=== PATIENT | female | born 1955 | race Caucasian/White ===

== ENCOUNTER → 2016-07-07 | Outpatient (CLI) | payer BC ==
--- NOTE | 2016-07-09 08:37 | MM ---
Reason for exam: screening (asymptomatic). Last mammogram was performed 1 year ago. History: Patient is postmenopausal. Family history of breast cancer in sister at age 57. Physical Findings: A clinical breast exam by your physician is recommended on an annual basis and results should be correlated with mammographic findings. MG Screening Mammo w CAD Bilateral CC and MLO view(s) were taken. Prior study comparison: July 03, 2015, bilateral MG screening mammo w CAD. June 26, 2014, bilateral MG screening mammo w CAD. June 24, 2013, bilateral digital screening mammo w/CAD. There are scattered fibroglandular densities. No significant changes when compared with prior studies. ASSESSMENT: Negative, BI-RAD 1 RECOMMENDATION: Routine screening mammogram of both breasts in 1 year.
== END ==
LOC: RADMAMWWP 06:48
PROVIDERS: ATTEND Obstetrics & Gynecology
DX: Z12.31 Encounter for screening mammogram for malignant neoplasm of breast (principal)

== ENCOUNTER → 2016-09-30 | Outpatient (CLI) | payer BC ==
--- NOTE | 2016-09-30 12:11 | EST ---
DATE OF SERVICE: 09/30/2016 AGE: 61Y SEX: F HT: 65 WT: 195 lbs. Protocol Shay: X Other: Stage: Dur. of Exercise: 6:28 *Heart Rate Blood Pressure *Rest: 109 Rest: 152/75 * *Max. Achieved: 148 Maximum BP: 203/63 85% PMHR: 134 100% PMHR: 158 *METS: 7 to 8 INDICATIONS: Abnormal EKG. MEDICATIONS: Simvastatin, Janumet, CoQ10. CLINICAL INFORMATION: Abnormal EKG. The patient is having history of chest pain, diabetes, hypertension, hypercholesterolemia. The patient has Q waves in the lead I and inferior leads suggestive of possible inferior NC, age unknown, appears to be nonpathologic. Resting ECG shows sinus rhythm, rate of 109 beats per minute with Q waves noted in the inferior leads. Does not appear to wide enough to be pathologic. Utilizing a standard Shay protocol, a symptom limited treadmill test was performed. Patient exercised for total of 6 minutes and 28 seconds, attained a peak heart rate of 148 beats per minute, which is approximately 85% predicted maximum heart rate without any chest pain or pressure or ST segment deviations indicative of ischemia in any of the monitoring 12 leads. Patient actually reached into the 90% of predicted maximum heart rate. Patient did not report any symptoms throughout the study. No ST segment deviations indicative of ischemia. May consider doing an echocardiogram to assess any wall motion abnormalities but patient does not have any evidence of underlying ischemia. IMPRESSION: 1. Baseline rhythm is sinus with Q waves noted in the inferior leads; cannot exclude inferior myocardial infarction, age unknown. 2. Negative exercise treadmill test at 90% predicted maximum heart rate. 3. Patient has average level of cardiopulmonary fitness as indicated by VO2 max and METs. Patient attained peak metabolic activity equivalent to 7 to 8 METs.
--- NOTE | 2016-10-01 10:39 | ECHOF ---
Referral Reason:Abnormal EKG R94.31 MEASUREMENTS -------- HEIGHT: 165.1 cm WEIGHT: 88.5 kg BP: 152/75 RVIDd: 2.9 cm (< 3.3) IVSd: 1.0 cm (0.6 - 1.1) LVIDd: 4.5 cm (3.9 - 5.3) LVPWd: 1.0 cm (0.6 - 1.1) IVSs: 1.8 cm LVIDs: 3.1 cm LVPWs: 1.4 cm LA Diam: 3.5 cm (2.7 - 3.8) LAESV Index (A-L): 12.56 ml/m Ao Diam: 3.2 cm (2.0 - 3.7) AV Cusp: 1.9 cm (1.5 - 2.6) MV EXCURSION: 15.488 mm (> 18.000) MV EF SLOPE: 102 mm/s (70 - 150) EPSS: 1.5 cm MV E Juma: 0.72 m/s MV DecT: 271 ms MV A Juma: 0.87 m/s MV E/A Ratio: 0.83 FINDINGS -------- Sinus rhythm. This was a technically adequate study. The left ventricular size is normal. Left ventricular wall thickness is normal. Overall left ventricular systolic function is normal with, an EF between 60 - 65 %. The right ventricle is normal in size and function. Normal LA size by volume 22+/-6 ml/m2. The right atrium is normal in size. There is mild aortic valve sclerosis. Mild mitral annular calcification present. The tricuspid valve appears structurally normal. The pulmonic valve was not well visualized. The aortic root size is normal. Normal inferior vena cava with normal inspiratory collapse consistent with estimated right atrial pressure of 5 mmHg. The pericardium is normal. CONCLUSIONS -------- 1. Sinus rhythm. 2. Mild mitral annular calcification present. 3. The tricuspid valve appears structurally normal. 4. The pulmonic valve was not well visualized. 5. The aortic root size is normal. 6. Normal inferior vena cava with normal inspiratory collapse consistent with estimated right atrial pressure of 5 mmHg. 7. The pericardium is normal. 8. This was a technically adequate study. 9. The left ventricular size is normal. 10. Left ventricular wall thickness is normal. 11. Overall left ventricular systolic function is normal with, an EF between 60 - 65 %. 12. The right ventricle is normal in size and function. 13. Normal LA size by volume 22+/-6 ml/m2. 14. The right atrium is normal in size. 15. There is mild aortic valve sclerosis. OUTREACH AND EDUCATION SOCIAL WORKER: Arely Kohli RDCS
== END | disposition home or self-care (01) ==
LOC: RADNMMAIN 11:09
PROVIDERS: ATTEND Internal Medicine Geriatric Medicine
DX: I05.8 Other rheumatic mitral valve diseases (principal); I70.0 Atherosclerosis of aorta
CPT/HCPCS: 93017; 93306

== ENCOUNTER → 2017-04-22 | Outpatient (CLI) | payer BC ==
--- NOTE | 2017-04-22 11:06 | XR ---
EXAMINATION TYPE: XR chest 2V DATE OF EXAM: 04/22/2017 COMPARISON: 08/14/2010 HISTORY: Shortness of breath TECHNIQUE: Frontal and lateral views of the chest are obtained. FINDINGS: Scattered senescent parenchymal changes noted. Hyperinflation compatible with COPD. No evidence for infiltrate. No evidence for atelectasis. Heart size is stable. Mediastinal structures are stable and grossly unremarkable. No evidence for hilar prominence. Degenerative changes dorsal spine. IMPRESSION: 1. No evidence for acute pulmonary disease.
--- NOTE | 2017-04-22 12:14 | XR ---
EXAMINATION TYPE: XR lumbar spine 2 or 3V DATE OF EXAM: 04/22/2017 CLINICAL HISTORY: pain TECHNIQUE: Three views of the lumbar spine are submitted. COMPARISON: None. FINDINGS: There are 5 lumbar type vertebral bodies identified. The lumbar spine shows satisfactory alignment w ithout evidence of acute fracture or dislocation. Vertebral body heights are within normal limits. Mild degenerative disc space narrowing at L4-5 and L5-S1 and mild facet joint arthropathy. The overl selwyn soft tissue appears unremarkable. IMPRESSION: No acute fracture or dislocation is seen in the lumbar spine. ICD 10 NO FRACTURE, INITIAL EVALUATION
== END | disposition home or self-care (01) ==
LOC: RADXRMAIN 10:36
PROVIDERS: ATTEND Internal Medicine Geriatric Medicine
DX: R07.89 Other chest pain (principal); M54.5 Low back pain
CPT/HCPCS: 71020; 72100

== ENCOUNTER → 2017-07-31 | Outpatient (CLI) | payer BC ==
--- NOTE | 2017-08-03 10:58 | MM ---
Reason for exam: screening (asymptomatic). Last mammogram was performed 1 year and 1 month ago. History: Patient is postmenopausal. Family history of breast cancer in sister at age 57. Physical Findings: A clinical breast exam by your physician is recommended on an annual basis and results should be correlated with mammographic findings. MG 3D Screening Mammo W/Cad Bilateral CC and MLO view(s) were taken. Prior study comparison: July 07, 2016, bilateral MG screening mammo w CAD. July 03, 2015, bilateral MG screening mammo w CAD. There are scattered fibroglandular densities. Asymmetric breast tissue in the left anterior position. There is no discrete abnormality. ASSESSMENT: Negative, BI-RAD 1 RECOMMENDATION: Routine screening mammogram of both breasts in 1 year.
== END | disposition home or self-care (01) ==
LOC: RADMAMWWP 07:01
PROVIDERS: ATTEND Obstetrics & Gynecology
DX: Z12.31 Encounter for screening mammogram for malignant neoplasm of breast (principal)
CPT/HCPCS: 77063; 77067

== ENCOUNTER → 2017-10-12 | Outpatient (CLI) | payer BC ==
--- NOTE | 2017-10-12 13:51 | BD ---
EXAMINATION TYPE: MG DEXA axial skeleton. DATE OF EXAM: 10/12/2017 COMPARISON: 02/25/2011 CLINICAL HISTORY: Postmenopausal female. Osteoporosis screening. Height: 63.5 IN Weight: 199 LBS FRAX RISK QUESTIONS: Alcohol (3 or more units per day): NO Family History (Parent hip fracture): NO Glucocorticoids (More than 3mos): NO (Ex: prednisone, prednisolone, methylprednisolone, dexamethasone, and hydrocortisone). History of Fracture in Adulthood: YES LT FOOT AGE 52 Secondary Osteoporosis: 1. Type 1 Diabetes: NO 2. Hyperthyroidism: NO 3. Menopause before 45: AGE 53 4. Malnutrition: NO 5. Chronic liver disease: NO Rheumatoid Arthritis: NO Current Tobacco Use: NO RISK FACTORS HISTORY OF: Active: YES Diet low in dairy products/other sources of calcium: YES Postmenopausal woman: AGE 53 MEDICATIONS: Additional Medications: CALCIUM, VIT D, HCTZ, SIMVASTATIN, KLOR-CON, JANUMET, COQ10, EXAM MEASUREMENTS: Bone mineral densitometry was performed using the [employer]. Bone mineral density as measured about the Lumbar spine is: ----- L1-L4(G/cm2): 1.400 T Score Values are as follows: ----- L2: 1.4 ----- L3: 1.7 ----- L4: 2.2 ----- L1-L4: 1.8 Bone mineral density has: Increased 1.2% since study of: 02/25/2011 Bone mineral density about the R hip (g/cm2): 0.852 Bone mineral density about the L hip (g/cm2): 0.918 T Score values are as follows: -----R Neck: -1.3 -----L Neck: -0.9 -----R Total: -0.2 -----L Total: -0.3 Bone mineral density has: Increased 1.2% since study of: 02/25/2011 IMPRESSION: Osteopenia (T Score between -2.5 and -1) with regards to the right hip. There is slightly increased risk of fracture and the patient may be considered for treatment. Re-Screen 2-5 years. NOTE: T-SCORE=SD OF THE YOUNG ADULT MEAN.
--- NOTE | 2017-10-12 14:01 | XR ---
EXAMINATION TYPE: XR ribs RT DATE OF EXAM: 10/12/2017 COMPARISON: Prior chest x-ray April 22, 2017 HISTORY: Right rib pain for 6 years. TECHNIQUE: A frontal and oblique images of the right-sided ribs are acquired. FINDINGS: No suspicious acute or subacute displaced right-sided rib fractures identified. No suspicio us expansile lesion is seen. Visualized right lung is clear. Cholecystectomy clips are incidentally r edemonstrated. IMPRESSION: No acute displaced right-sided rib fracture is seen.
== END | disposition home or self-care (01) ==
LOC: RADBDWWP 13:01
PROVIDERS: ATTEND Internal Medicine Geriatric Medicine
DX: M85.851 Other specified disorders of bone density and structure, right thigh (principal); R07.89 Other chest pain
CPT/HCPCS: 77080

== ENCOUNTER → 2018-04-08 | Outpatient (CLI) | payer BC ==
--- NOTE | 2018-04-08 12:54 | US ---
EXAMINATION TYPE: US abdomen complete DATE OF EXAM: 04/08/2018 COMPARISON: CT & US CLINICAL HISTORY: R10.84 Generalized abdominal pain. Pt states upper ABD pain x many years/ GB remove d EXAM MEASUREMENTS: Liver Length: 17.7 cm CBD: 0.7 cm Spleen: 10.9 cm Right Kidney: 12.0 x 5.2 x 5.3 cm Left Kidney: 11.6 x 5.4 x 4.5 cm Pancreas: wnl, 2mm panc duct visualized Liver: Heterogeneous, upper limits of normal for size, 2 hypoechoic areas seen, one in left lobe= 3. 7 x 1.8 x 6.2 cm and in right lobe near stephen= 2.8 x 1.8 x 3.0 cm/ cyst right superior lobe= 2.1 x 2. 1 x 1.6 cm Gallbladder: Surgically absent Evidence for sonographic Rangel's sign: No CBD: wnl for post amanda Spleen: wnl Right Kidney: Hyperechoic area mid= 0.6 cm Left Kidney: wnl Upper IVC: wnl Abd Aorta: wnl The intrahepatic portion of the IVC and proximal abdominal aorta are within normal limits. There is no evidence of cholelithiasis. Common bile duct is unremarkable. The visualized portions of the locke creas are homogenous. The spleen is unremarkable. Kidneys are symmetric and free of hydronephrosis. No renal lesions are seen. IMPRESSION: 1. Findings are suggestive of hepatic steatosis with areas of probable focal fatty sparing, however f ull characterization with three-phase enhanced CT abdomen would be suggested to confirm these areas r epresent fatty sparing rather than hepatic masses. 2. Hyperechoic 6 mm right renal focus could represent a small nonshadowing calculus or prominent richelle l sinus fat. No evidence of hydronephrosis.
== END | disposition home or self-care (01) ==
LOC: RADUSWWP 11:52
PROVIDERS: ATTEND Internal Medicine Geriatric Medicine
DX: R93.41 Abnormal radiologic findings on diagnostic imaging of renal pelvis, ureter, or bladder (principal); R10.84 Generalized abdominal pain
CPT/HCPCS: 76700

== ENCOUNTER → 2018-06-22 | Outpatient (CLI) | payer BC ==
--- NOTE | 2018-06-22 14:10 | CT ---
EXAMINATION TYPE: CT abdomen w con DATE OF EXAM: 06/22/2018 COMPARISON: Ultrasound 04/08/2018 INDICATION: Abnormal US. RUQ pain DLP: 910.1 mGycm, Automated exposure control for dose reduction was used. CONTRAST: 100 mL of Isovue 300. Study performed with Oral Contrast TECHNIQUE: Axial images were obtained from above the diaphragm to the iliac crests in the axial plane at 5 mm thick sections. Reconstructed images are reviewed on the computer in the coronal plane. 2 phase imaging is performed post contrast and liver. FINDINGS: Limited CT sections are obtained the lung bases. The lung bases are clear. CT ABDOMEN: Liver: 0.5 cm this may be in the superior right lobe liver. There is a 1.9 cm cyst at the inferior ri ght tip liver measuring 7 Hounsfield units. Suspicious masses are not identified. Spleen: Normal Pancreas: Normal Adrenal glands: The adrenal glands are normal. Gallbladder: Surgically absent Kidneys: No masses are evident. No hydronephrosis is present. No cysts are present. Delayed images were obtained through the kidneys, which remain unremarkable. Aorta: Normal Inferior vena cava: Normal. CT PELVIS: Loops of bowel distended with oral contrast normal. Oral contrast extends to distal small bowel loops . The colon contains some fecal debris. IMPRESSIONS: 1. Hepatic cysts.
== END | disposition home or self-care (01) ==
LOC: RADCTMAIN 08:00
PROVIDERS: ATTEND Internal Medicine Geriatric Medicine
DX: K76.89 Other specified diseases of liver (principal)
CPT/HCPCS: 82565; 84520; 74160; 36415; Q9967

== ENCOUNTER → 2018-10-12 | Outpatient (CLI) | payer BC ==
--- NOTE | 2018-10-13 12:08 | MM ---
Reason for exam: screening (asymptomatic). Last mammogram was performed 1 year and 2 months ago. History: Patient is postmenopausal. Family history of breast cancer in sister at age 57. Physical Findings: A clinical breast exam by your physician is recommended on an annual basis and results should be correlated with mammographic findings. MG 3D Screening Mammo W/Cad Bilateral CC and MLO view(s) were taken. Prior study comparison: July 31, 2017, bilateral MG 3d screening mammo w/cad. July 07, 2016, bilateral MG screening mammo w CAD. There are scattered fibroglandular densities. There is no discrete abnormality. ASSESSMENT: Negative, BI-RAD 1 RECOMMENDATION: Routine screening mammogram of both breasts in 1 year.
== END ==
LOC: RADMAMWWP 07:50
PROVIDERS: ATTEND Obstetrics & Gynecology
DX: Z12.31 Encounter for screening mammogram for malignant neoplasm of breast (principal)
CPT/HCPCS: 77063; 77067

== ENCOUNTER → 2019-07-01 | Outpatient (CLI) | payer BC ==
--- NOTE | 2019-07-01 13:05 | ECHOS ---
STRESS ECHOCARDIOGRAM INDICATIONS: Chest pain. MEDICATIONS: Lisinopril, Janumet, Klor-Con, simvastatin. BASELINE HEART RATE: 82 BASELINE BLOOD PRESSURE: 136/49 MAXIMUM HEART RATE: 150 MAXIMUM BLOOD PRESSURE: 163/61 85% MPHR: 133 100% MPHR: 156 METS: 7.1 MAXIMUM STAGE REACHED: 2 TOTAL EXERCISE TIME: 6:00 CLINICAL INFORMATION: Patient was exercised for a total period of 6 minutes, a peak heart rate of 150 was achieved. Maximum blood pressure of 163/61 mmHg was noted. Resting EKG shows a normal sinus rhythm with normal CO interval and QRS duration and normal ST-T waves. During exercise, J-point depression with upsloping ST segments are noted. Patient did not complain of any chest pain during the test. The baseline echocardiographic images reveals a normal left ventricular chamber size with normal left ventricular systolic function in the immediate postexercise period. Normal increase in the wall thickness and contractility is noted. FINAL IMPRESSION: This stress echocardiographic study is negative for stress-induced ischemia. EKG portion of the stress test is not suggestive of ischemia. Patient's exercise tolerance is normal. MMODL / IJN: [id number] /
== END | disposition home or self-care (01) ==
LOC: RADNMMAIN 09:34
PROVIDERS: ATTEND Internal Medicine Geriatric Medicine
DX: R07.9 Chest pain, unspecified (principal)
CPT/HCPCS: 93351

== ENCOUNTER → 2020-02-24 | Outpatient (CLI) | payer MEDICARE ==
--- NOTE | 2020-02-24 12:24 | XR ---
EXAMINATION TYPE: XR shoulder complete RT DATE OF EXAM: 02/24/2020 CLINICAL HISTORY: pain TECHNIQUE: Three views of the right shoulder are obtained. COMPARISON: None FINDINGS: There is no acute fracture/dislocation evident. The acromioclavicular and glenohumeral linnette int spaces appear mildly narrowed. The visualized ribs are intact and unremarkable. IMPRESSION: 1. There is no acute fracture or dislocation. ICD 10 NO FRACTURE, INITIAL EVALUATION
== END | disposition home or self-care (01) ==
LOC: RADXRMAIN 11:52
PROVIDERS: ATTEND Nurse Practitioner Gerontology
DX: M25.511 Pain in right shoulder (principal)

== ENCOUNTER 2020-10-12 20:01 | Emergency (ER) | payer MEDICARE ==
[2020-10-12 20:07] VITALS: RESP 18; TEMP 98.1
--- NOTE | 2020-10-12 20:32 | ED ---
General Adult HPI - General Chief complaint: Recheck/Abnormal Lab/Rx Stated complaint: BP IS HIGH. Time Seen by Provider: 10/12/20 20:10 Source: patient, RN notes reviewed Mode of arrival: ambulatory - History of Present Illness Initial comments: 65-year-old white female patient in no acute distress presents to the emergency room with her complaining of elevated blood pressure on her blood pressure monitor at home. Patient states was at the dentist yesterday and they told her her blood pressure was elevated at 188 systolic. patient states has been checking it frequently at home with similar readings. Patient is anxious about her elevated blood pressure. Concerned because she is going on vacation tomorrow and wants to make sure everything is okay. She states they are driving to [place] for 17 days. Patient states takes lisinopril 30 mg once a day and has been on it for over a year with no complications. Patient denies any other symptoms but does state that she did have about 20-30 second episode of chest pressure midsternal today that resolved on its own. Patient states that she also has an occasional throbbing headache in the back of her head at night but resolves with sleep. Patient denies cough, fevers, nausea or vomiting. Patient denies chest pain at this time. -: days(s) Location: chest Radiation: non-radiation Severity scale (1-10): 0 Quality: other (pressure) Improves with: rest Worsens with: none Associated Symptoms: headaches (throbbing at night) Treatments Prior to Arrival: none (2) - Related Data Home Medications Medication Instructions Recorded Confirmed Amitriptyline HCl 25 mg PO HS 08/03/14 08/03/14 Hydrochlorothiazide 25 mg PO DAILY 08/03/14 08/03/14 Potassium Chloride ER [K-Dur 20] 20 meq PO DAILY 08/03/14 08/03/14 Simvastatin [Zocor] 20 mg PO HS 08/03/14 08/03/14 Allergies Allergy/AdvReac Type Severity Reaction Status Date / Time No Known Allergies Allergy Verified 10/12/20 20:07 Review of Systems ROS Statement: Those systems with pertinent positive or pertinent negative responses have been documented in the HPI. ROS Other: All systems not noted in ROS Statement are negative. 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 lysis of adhesions. removal ovarian cyst Past Anesthesia/Blood Transfusion Reactions: Motion Sickness, Postoperative Nausea & Vomiting (PONV) Smoking Status: Never smoker Past Alcohol Use History: Occasional Past Drug Use History: None Reported - Past Family History Mother Family Medical History: Cancer Additional Family Medical History / Comment(s): bladder General Exam General appearance: alert, in no apparent distress Head exam: Present: atraumatic, normocephalic, normal inspection Eye exam: Present: normal appearance, PERRL, EOMI. Absent: scleral icterus, conjunctival injection, nystagmus, periorbital swelling Pupils: Present: normal accommodation ENT exam: Present: normal exam, normal oropharynx, mucous membranes moist Neck exam: Present: normal inspection, full ROM. Absent: tenderness, meningismus, lymphadenopathy, thyromegaly Respiratory exam: Present: normal lung sounds bilaterally. Absent: respiratory distress, wheezes, rales, rhonchi, stridor, chest wall tenderness, accessory muscle use, decreased breath sounds, prolonged expiratory Cardiovascular Exam: Present: normal rhythm, tachycardia, normal heart sounds. Absent: clicks, JVD GI/Abdominal exam: Present: soft, normal bowel sounds. Absent: distended, tenderness, guarding, rebound, rigid Extremities exam: Present: normal inspection, full ROM, normal capillary refill. Absent: tenderness, pedal edema, joint swelling, calf tenderness Back exam: Present: normal inspection, full ROM. Absent: tenderness, CVA tenderness (R), CVA tenderness (L) Neurological exam: Present: alert, oriented X3, CN II-XII intact Psychiatric exam: Present: anxious Skin exam: Present: warm, dry, intact, normal color. Absent: rash, cyanosis, diaphoretic, petechiae, pallor, mottled Course Vital Signs 10/12/20 10/12/20 20:04 21:07 Temperature 98.1 F Pulse Rate 115 H 78 Respiratory 18 18 Rate Blood Pressure 188/80 144/72 O2 Sat by Pulse 98 Oximetry EKG Findings - EKG Results: EKG: WNL, sinus rhythm (Normal sinus rhythm with ventricular rate of 82, MA interval 0.17, QRS of 0.11, QTC of 0.420) Medical Decision Making - Medical Decision Making Patient relaxed on cart with a blood pressure of 144/72, EKG normal sinus rhythm, troponin of 0.012, oxygen 98% on room air, patient with no chest pain in ER. Hemoglobin is 14.2 hematocrit is 43.2. This is likely anxiety related and patient directed to follow up with primary care doctor. Patient agreeable to this plan. Case discussed with Dr. Cui who was also agreeable with this plan. - Lab Data Result diagrams: 10/12/20 20:36 10/12/20 20:36 Lab Results 10/12/20 10/12/20 10/12/20 Range/Units 20:36 20:36 20:36 WBC 7.0 (3.8-10.6) k/uL RBC 5.07 (3.80-5.40) m/uL Hgb 14.2 (11.4-16.0) gm/dL Hct 43.2 (34.0-46.0) % MCV 85.1 (80.0-100.0) fL MCH 27.9 (25.0-35.0) pg MCHC 32.8 (31.0-37.0) g/dL RDW 14.0 (11.5-15.5) % Plt Count 266 (150-450) k/uL MPV 7.5 Neutrophils % 60 % Lymphocytes % 33 % Monocytes % 4 % Eosinophils % 2 % Basophils % 0 % Neutrophils # 4.2 (1.3-7.7) k/uL Lymphocytes # 2.3 (1.0-4.8) k/uL Monocytes # 0.3 (0-1.0) k/uL Eosinophils # 0.1 (0-0.7) k/uL Basophils # 0.0 (0-0.2) k/uL Sodium 139 (137-145) mmol/L Chloride 104 (98-107) mmol/L Carbon Dioxide 24 (22-30) mmol/L Anion Gap 11 mmol/L BUN 12 (7-17) mg/dL Creatinine 0.62 (0.52-1.04) mg/dL Est GFR (CKD-EPI)AfAm >90 (>60 ml/min/1.73 sqM) Est GFR (CKD-EPI)NonAf >90 (>60 ml/min/1.73 sqM) Glucose 164 H (74-99) mg/dL Calcium 10.3 H (8.4-10.2) mg/dL Magnesium 2.1 (1.6-2.3) mg/dL Total Bilirubin 0.6 (0.2-1.3) mg/dL AST 23 (14-36) U/L ALT 15 (4-34) U/L Alkaline Phosphatase 65 (38-126) U/L Troponin I <0.012 (0.000-0.034) ng/mL Total Protein 7.7 (6.3-8.2) g/dL Albumin 4.7 (3.5-5.0) g/dL Disposition Clinical Impression: Anxiety, Hypertension Disposition: HOME SELF-CARE Condition: Good Additional Instructions: Follow-up with the primary care doctor is scheduled, continue your home medications. Is patient prescribed a controlled substance at d/c from ED?: No Referrals: Hans Redmond MD [Primary Care Provider] - 1-2 days Time of Disposition: 21:32
[2020-10-12 20:48] LABS: Basophils % (A) 0 %; Eosinophils # (A) 0.1 k/uL (0-0.7); Eosinophils % (A) 2 %; HCT 43.2 % (34.0-46.0); HGB 14.2 gm/dL (11.4-16.0); Lymphocytes # (A) 2.3 k/uL (1.0-4.8); Lymphocytes % (A) 33 %; MCH 27.9 pg (25.0-35.0); MCHC 32.8 g/dL (31.0-37.0); MCV 85.1 fL (80.0-100.0); Mean Platelet Volume 7.5; Monocytes # (A) 0.3 k/uL (0-1.0); Monocytes % (A) 4 %; Neutrophils # (A) 4.2 k/uL (1.3-7.7); Neutrophils % (A) 60 %; Platelet Count 266 k/uL (150-450); RBC 5.07 m/uL (3.80-5.40)
[2020-10-12 20:57] LABS: ALT 15 U/L (4-34); AST 23 U/L (14-36); African American GFR (CKD) >90 (>60 ml/min/1.73 sqM); Albumin 4.7 g/dL (3.5-5.0); Alkaline Phosphatase 65 U/L (38-126); Anion Gap 11 mmol/L; Blood Urea Nitrogen 12 mg/dL (7-17); Calcium 10.3 mg/dL (8.4-10.2); Carbon Dioxide 24 mmol/L (22-30); Chloride 104 mmol/L (98-107); Glucose 164 mg/dL (74-99); Magnesium 2.1 mg/dL (1.6-2.3); Non-African American GFR(CKD) >90 (>60 ml/min/1.73 sqM); Sodium 139 mmol/L (137-145); Total Bilirubin 0.6 mg/dL (0.2-1.3); Total Protein 7.7 g/dL (6.3-8.2)
[2020-10-12 21:24] VITALS: BP 144/72; PULSE 78
[2020-10-12 21:35] LABS: Potassium 3.8 mmol/L (3.5-5.1)
== END 2020-10-12 21:38 | disposition home or self-care (01) ==
LOC: EC 20:01
DX: I10 Essential (primary) hypertension (principal); F41.9 Anxiety disorder, unspecified; E78.5 Hyperlipidemia, unspecified
CPT/HCPCS: 36415; 80053; 83735; 84484; 85025; 93005; 99283

== ENCOUNTER 2021-03-08 06:59 | Day surgery (SDC) | payer MEDICARE ==
[2021-03-06 16:35] VITALS: BMI 30.7
[~2021-03-08 06:59] MED LIST: LACTATED RINGERS 1,000 ML IV SCH
[2021-03-08 07:23] VITALS: RESP 16; TEMP 98.5
[2021-03-08 07:30] LABS: Glucose,Whole Blood 117 mg/dL (75-99)
[2021-03-08] MEDS ORDERED: PROPOFOL 10 MG/ML 20 ML VIAL IV ONE (07:51)
[2021-03-08] MEDS ORDERED: LIDOCAINE 1% INJ 10MG/ML (20 ML MDV) ONE (07:51)
--- NOTE | 2021-03-08 08:23 | P.PCN ---
Date of Procedure: 03/08/21 Procedure(s) Performed: BRIEF HISTORY: Patient is a 65-year-old pleasant female scheduled for an elective colonoscopy as a part of evaluation of prior history of colon polyps. Her last colonoscopy was 5 years ago. PROCEDURE PERFORMED: Colonoscopy. PREOPERATIVE DIAGNOSIS: History of colon polyps. IV sedation per Anesthesia. PROCEDURE: After informed consent was obtained, the patient, was brought into the endoscopy unit. IV sedation was administered by Anesthesia under continuous monitoring. Digital rectal examination was normal. Initially the Olympus CF-160 flexible video colonoscope was then inserted in the rectum, gradually advanced into the cecum without any difficulty. Careful examination was performed as the scope was gradually being withdrawn. Ileocecal valve and the appendiceal orifice were visualized and appeared normal. Prep was excellent. Mucosa of the cecum, ascending colon, transverse colon, descending colon, sigmoid colon, and rectum appeared normal. Scattered sigmoid diverticulosis. Retroflexion was performed in the rectum and no lesions were seen. The patient tolerated the procedure well. IMPRESSION: Normal-appearing colon from rectum to cecum with no evidence of colorectal neoplasia. RECOMMENDATIONS: Findings of this examination were discussed with the patient as well as a family. She was advised to have a repeat screening colonoscopy in 10 years.
[2021-03-08 08:46] VITALS: BP 101/54; PULSE 74
== END 2021-03-08 09:14 | disposition home or self-care (01) ==
LOC: ORWHC2ENDO 06:59
PROVIDERS: ATTEND Internal Medicine Gastroenterology
DX: Z12.11 Encounter for screening for malignant neoplasm of colon (principal); K57.30 Diverticulosis of large intestine without perforation or abscess without bleeding; Z86.010 Personal history of colon polyps; I10 Essential (primary) hypertension; E78.5 Hyperlipidemia, unspecified; Z79.84 Long term (current) use of oral hypoglycemic drugs; Z79.899 Other long term (current) drug therapy; Z90.49 Acquired absence of other specified parts of digestive tract
CPT/HCPCS: J2001; J2704; G0105

== ENCOUNTER → 2021-03-12 | Outpatient (CLI) | payer MEDICARE ==
--- NOTE | 2021-03-13 09:42 | MM ---
Reason for exam: screening (asymptomatic). Last mammogram was performed 1 year and 2 months ago. History: Patient is postmenopausal. Family history of breast cancer in sister at age 57. Took hormonal contraceptives for 5 years. Physical Findings: A clinical breast exam by your physician is recommended on an annual basis and results should be correlated with mammographic findings. MG 3D Screening Mammo W/Cad Bilateral CC and MLO view(s) were taken. Prior study comparison: January 09, 2020, bilateral MG 3d screening mammo w/cad. October 12, 2018, bilateral MG 3d screening mammo w/cad. The breast tissue is heterogeneously dense. This may lower the sensitivity of mammography. There is no discrete abnormality. No significant changes when compared with prior studies. ASSESSMENT: Negative, BI-RAD 1 RECOMMENDATION: Routine screening mammogram of both breasts in 1 year.
== END | disposition home or self-care (01) ==
LOC: RADMAMWWP 07:13
PROVIDERS: ATTEND Internal Medicine Geriatric Medicine
DX: Z12.31 Encounter for screening mammogram for malignant neoplasm of breast (principal); Z78.0 Asymptomatic menopausal state; Z80.3 Family history of malignant neoplasm of breast
CPT/HCPCS: 77063; 77067

== ENCOUNTER 2021-05-29 18:46 | Emergency (ER) | payer MEDICARE ==
[2021-05-29] MEDS ORDERED: SODIUM CHLORIDE 0.9% 1,000 ML IV STA (19:27)
[2021-05-29] MEDS ORDERED: IBUPROFEN 600 MG TAB PO STA (19:27)
[2021-05-29] MEDS ORDERED: ACETAMINOPHEN TAB 325 MG TAB PO STA (19:27)
[2021-05-29 19:59] VITALS: RESP 18
[2021-05-29 20:17] LABS: Albumin 4.1 g/dL (3.5-5.0); Calcium 9.7 mg/dL (8.4-10.2); HCT 42.4 % (34.0-46.0); HGB 14.2 gm/dL (11.4-16.0); MCHC 33.4 g/dL (31.0-37.0); MCV 89.9 fL (80.0-100.0); Mean Platelet Volume 9.7; Platelet Count 184 k/uL (150-450); Potassium 4.5 mmol/L (3.5-5.1); RBC 4.72 m/uL (3.80-5.40); RDW 14.2 % (11.5-15.5); Total Bilirubin 1.7 mg/dL (0.2-1.3); Total Protein 6.8 g/dL (6.3-8.2); WBC 4.3 k/uL (3.8-10.6)
[2021-05-29 20:32] LABS: Band Neutrophils % 3 %; Eosinophils # (M) 0.04 k/uL (0-0.7); Lymphocytes # (M) 0.22 k/uL (1.0-4.8); Monocytes # (M) 0.09 k/uL (0-1.0); Neutrophils % (M) 89 %; Nucleated Red Blood Cells 0 /100 WBC (0-0); Polychromasia Present; Total Cells Counted 100
--- NOTE | 2021-05-29 20:41 | XR ---
EXAMINATION TYPE: XR chest 2V DATE OF EXAM: 05/29/2021 COMPARISON: NONE HISTORY: Fever TECHNIQUE: Frontal and lateral views of the chest are obtained. FINDINGS: There is no focal air space opacity, pleural effusion, or pneumothorax seen. The cardiac silhouette size is within normal limits. The osseous structures are intact. IMPRESSION: No acute cardiopulmonary process.
[2021-05-29 21:15] VITALS: BP 99/56; PULSE 99; TEMP 101.5
[2021-05-29 21:33] LABS: Appearance,Urine Turbid (Clear); Bacteria,Urine Many /hpf; Bilirubin,Urine Negative (Negative); Blood,Urine Negative (Negative); Budding Yeast,Urine Moderate /hpf; Color,Urine Yellow; Glucose,Urine (UA) Negative (Negative); Hyaline Casts,Urine 42 /lpf (0-2); Ketones,Urine Trace (Negative); Leukocyte Esterase,Urine Large (Negative); Mucus,Urine Occasional /hpf; Nitrite,Urine Negative (Negative); Protein,Urine 1+ (Negative); RBC,Urine 6 /hpf (0-5); Specific Gravity,Urine 1.019 (1.001-1.035); Squamous Epithelial Cell,Urine 34 /hpf (0-4); Urobilinogen,Urine <2.0 mg/dL (<2.0); WBC,Urine 18 /hpf (0-5)
[2021-05-29] MEDS ORDERED: cefTRIAXone IN SWFI 1,000 MG/10 ML SYRINGE IVP STA (22:01)
[2021-05-29] MEDS ORDERED: ONDANSETRON 4 MG ODT STARTER PACK 2 TAB BTL PO STA (22:07)
--- NOTE | 2021-05-29 22:10 | ED ---
General Adult HPI - General Chief complaint: Fever Stated complaint: Sepsis Time Seen by Provider: 05/29/21 19:22 Source: patient, RN notes reviewed Mode of arrival: wheelchair Limitations: no limitations - History of Present Illness Initial comments: Patient is a 65-year-old female that presents to the emergency department complaining of nausea vomiting 2 days. She notes that she woke up this morning with a fever nausea vomiting she decided come to the emergency room. Patient denied any other upper respiratory tract type symptoms. Patient's did look like she was not feeling well lying in bed. She denied any alleviating or aggravating factors. Denied chest pain shortness of breath headache diarrhea constipation fatigue chills. - Related Data Home Medications Medication Instructions Recorded Confirmed Potassium Chloride ER [K-Dur 20] 20 meq PO HS 08/03/14 05/29/21 Dorzolamide-Timol 2.23%/0.68% 1 drop BOTH EYES BID 03/06/21 05/29/21 [Cosopt] Ergocalciferol [Vitamin D2 (1250 50,000 unit PO DIRECTED 03/06/21 05/29/21 Mcg = 10423 Iu)] Latanoprost Ophth [Xalatan 0.005%] 1 drops BOTH EYES HS 03/06/21 05/29/21 Rosuvastatin [Crestor] 10 mg PO HS 03/06/21 05/29/21 lisinopriL [Zestril] 20 mg PO BID 03/06/21 05/29/21 sitaGLIPtin PHOS/metFORMIN HCL 1 tab PO BID 03/06/21 05/29/21 [Janumet 50-500 mg Tablet] Calcium Carbonate [Calcium] 1,200 mg PO Q48H 05/29/21 05/29/21 Ubidecarenone [Coenzyme Q10] 200 mg PO DAILY 05/29/21 05/29/21 amLODIPine [Norvasc] 5 mg PO DAILY 05/29/21 05/29/21 Previous Rx's Medication Instructions Recorded Cephalexin [Keflex] 500 mg PO Q6HR #40 cap 05/29/21 Allergies Allergy/AdvReac Type Severity Reaction Status Date / Time No Known Allergies Allergy Verified 05/29/21 21:19 Review of Systems ROS Statement: Those systems with pertinent positive or pertinent negative responses have been documented in the HPI. ROS Other: All systems not noted in ROS Statement are negative. 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 lysis of adhesions. removal ovarian cyst Past Anesthesia/Blood Transfusion Reactions: Motion Sickness, Postoperative Nausea & Vomiting (PONV) Past Psychological History: No Psychological Hx Reported Smoking Status: Never smoker Past Alcohol Use History: None Reported Past Drug Use History: None Reported - Past Family History Mother Family Medical History: Cancer Additional Family Medical History / Comment(s): bladder General Exam Limitations: no limitations General appearance: alert, in no apparent distress Head exam: Present: atraumatic, normocephalic, normal inspection Eye exam: Present: normal appearance, PERRL, EOMI. Absent: scleral icterus, conjunctival injection, periorbital swelling Neck exam: Present: normal inspection Respiratory exam: Present: normal lung sounds bilaterally. Absent: respiratory distress, wheezes, rales, rhonchi, stridor Cardiovascular Exam: Present: regular rate, normal rhythm, normal heart sounds. Absent: systolic murmur, diastolic murmur, rubs, gallop, clicks GI/Abdominal exam: Present: soft, normal bowel sounds. Absent: distended, tenderness, guarding, rebound, rigid Extremities exam: Present: normal inspection, full ROM, normal capillary refill. Absent: tenderness, pedal edema, joint swelling, calf tenderness Neurological exam: Present: alert, oriented X3 Psychiatric exam: Present: normal affect, normal mood Skin exam: Present: warm, dry, intact, normal color. Absent: rash Course Vital Signs 05/29/21 05/29/21 05/29/21 18:48 19:58 21:14 Temperature 103.0 F H 101.5 F H Pulse Rate 131 H 127 H 99 Respiratory 20 18 18 Rate Blood Pressure 124/67 123/57 99/56 O2 Sat by Pulse 98 93 L 94 L Oximetry Medical Decision Making - Medical Decision Making 65-year-old female with a fever and nausea vomiting for the past several days. Labs, chest x-ray, 600 mg of Motrin, 650 mg Tylenol, 4 mg of Zofran ordered. Labs: CBC and CMP unremarkable, urinalysis shows 18 white blood cells many ok teria. 1 g Rocephin ordered, antibiotics sent to pharmacy. Chest x-ray shows no acute cardiopulmonary process. Patient most likely has a urinary tract infection. Case discussed with Dr. Hassan, patient can discharge home. - Lab Data Result diagrams: 05/29/21 19:46 05/29/21 19:46 Lab Results 05/29/21 05/29/21 05/29/21 Range/Units 18:55 19:46 19:46 WBC 4.3 (3.8-10.6) k/uL RBC 4.72 (3.80-5.40) m/uL Hgb 14.2 (11.4-16.0) gm/dL Hct 42.4 (34.0-46.0) % MCV 89.9 (80.0-100.0) fL MCH 30.0 (25.0-35.0) pg MCHC 33.4 (31.0-37.0) g/dL RDW 14.2 (11.5-15.5) % Plt Count 184 (150-450) k/uL MPV 9.7 Neutrophils % (Manual) 89 % Band Neuts % (Manual) 3 % Lymphocytes % (Manual) 5 % Monocytes % (Manual) 2 % Eosinophils % (Manual) 1 % Neutrophils # (Manual) 3.90 (1.3-7.7) k/uL Lymphocytes # (Manual) 0.22 L (1.0-4.8) k/uL Monocytes # (Manual) 0.09 (0-1.0) k/uL Eosinophils # (Manual) 0.04 (0-0.7) k/uL Nucleated RBCs 0 (0-0) /100 WBC Polychromasia Present Sodium 133 L (137-145) mmol/L Potassium 4.5 (3.5-5.1) mmol/L Chloride 103 (98-107) mmol/L Carbon Dioxide 13 L (22-30) mmol/L Anion Gap 17 mmol/L BUN 45 H (7-17) mg/dL Creatinine 2.00 H (0.52-1.04) mg/dL Est GFR (CKD-EPI)AfAm 29 (>60 ml/min/1.73 sqM) Est GFR (CKD-EPI)NonAf 26 (>60 ml/min/1.73 sqM) Glucose 179 H (74-99) mg/dL Calcium 9.7 (8.4-10.2) mg/dL Total Bilirubin 1.7 H (0.2-1.3) mg/dL AST 44 H (14-36) U/L ALT 30 (4-34) U/L Alkaline Phosphatase 72 (38-126) U/L Total Protein 6.8 (6.3-8.2) g/dL Albumin 4.1 (3.5-5.0) g/dL Urine Color Urine Appearance (Clear) Urine pH (5.0-8.0) Ur Specific [place] (1.001-1.035) Urine Protein (Negative) Urine Glucose (UA) (Negative) Urine Ketones (Negative) Urine Blood (Negative) Urine Nitrite (Negative) Urine Bilirubin (Negative) Urine Urobilinogen (<2.0) mg/dL Ur Leukocyte Esterase (Negative) Urine RBC (0-5) /hpf Urine WBC (0-5) /hpf Ur Squamous Epith Cells (0-4) /hpf Urine Bacteria (None) /hpf Hyaline Casts (0-2) /lpf Urine Mucus (None) /hpf Urine Yeast (Budding) (None) /hpf Coronavirus (PCR) Not Detected (Not Detectd) Influenza Type A RNA (Not Detectd) Influenza Type B (PCR) (Not Detectd) 05/29/21 05/29/21 Range/Units 19:46 19:46 WBC (3.8-10.6) k/uL RBC (3.80-5.40) m/uL Hgb (11.4-16.0) gm/dL Hct (34.0-46.0) % MCV (80.0-100.0) fL MCH (25.0-35.0) pg MCHC (31.0-37.0) g/dL RDW (11.5-15.5) % Plt Count (150-450) k/uL MPV Neutrophils % (Manual) % Band Neuts % (Manual) % Lymphocytes % (Manual) % Monocytes % (Manual) % Eosinophils % (Manual) % Neutrophils # (Manual) (1.3-7.7) k/uL Lymphocytes # (Manual) (1.0-4.8) k/uL Monocytes # (Manual) (0-1.0) k/uL Eosinophils # (Manual) (0-0.7) k/uL Nucleated RBCs (0-0) /100 WBC Polychromasia Sodium (137-145) mmol/L Potassium (3.5-5.1) mmol/L Chloride (98-107) mmol/L Carbon Dioxide (22-30) mmol/L Anion Gap mmol/L BUN (7-17) mg/dL Creatinine (0.52-1.04) mg/dL Est GFR (CKD-EPI)AfAm (>60 ml/min/1.73 sqM) Est GFR (CKD-EPI)NonAf (>60 ml/min/1.73 sqM) Glucose (74-99) mg/dL Calcium (8.4-10.2) mg/dL Total Bilirubin (0.2-1.3) mg/dL AST (14-36) U/L ALT (4-34) U/L Alkaline Phosphatase (38-126) U/L Total Protein (6.3-8.2) g/dL Albumin (3.5-5.0) g/dL Urine Color Yellow Urine Appearance Turbid H (Clear) Urine pH 5.0 (5.0-8.0) Ur Specific [place] 1.019 (1.001-1.035) Urine Protein 1+ H (Negative) Urine Glucose (UA) Negative (Negative) Urine Ketones Trace H (Negative) Urine Blood Negative (Negative) Urine Nitrite Negative (Negative) Urine Bilirubin Negative (Negative) Urine Urobilinogen <2.0 (<2.0) mg/dL Ur Leukocyte Esterase Large H (Negative) Urine RBC 6 H (0-5) /hpf Urine WBC 18 H (0-5) /hpf Ur Squamous Epith Cells 34 H (0-4) /hpf Urine Bacteria Many H (None) /hpf Hyaline Casts 42 H (0-2) /lpf Urine Mucus Occasional H (None) /hpf Urine Yeast (Budding) Moderate H (None) /hpf Coronavirus (PCR) (Not Detectd) Influenza Type A RNA Not Detected (Not Detectd) Influenza Type B (PCR) Not Detected (Not Detectd) - Radiology Data Radiology results: report reviewed, image reviewed Chest x-ray: No acute cardiopulmonary process. Disposition Clinical Impression: Urinary tract infection Disposition: HOME SELF-CARE Condition: Stable Instructions (If sedation given, give patient instructions): Fever in Adults (ED), Urinary Tract Infection in Children (ED) Additional Instructions: Please return to the Emergency Department if symptoms worsen or any other concerns. Take antibiotics as prescribed until complete. Zofran as prescribed. Follow-up with primary care 1-2 days. Take Tylenol Motrin alternating every 3 hours for fever control. Prescriptions: Cephalexin [Keflex] 500 mg PO Q6HR #40 cap Is patient prescribed a controlled substance at d/c from ED?: No Referrals: Hans Redmond MD [Primary Care Provider] - 1-2 days Time of Disposition: 22:10
== END 2021-05-29 22:56 | disposition home or self-care (01) ==
LOC: EC 18:46
DX: N39.0 Urinary tract infection, site not specified (principal); I10 Essential (primary) hypertension; E78.5 Hyperlipidemia, unspecified; Z79.84 Long term (current) use of oral hypoglycemic drugs; Z79.899 Other long term (current) drug therapy
CPT/HCPCS: 36415; 80053; 85025; 81001; 87086; 87502; 87635; 71046; 99284; 96374; J0696; S0119

== ENCOUNTER 2021-05-31 13:45 | Inpatient (IN) | payer MEDICARE ==
--- NOTE | 2021-05-31 17:50 | CT ---
EXAMINATION TYPE: CT abdomen pelvis wo con CT DLP: 737.6 mGycm, Automated exposure control for dose reduction was used. DATE OF EXAM: 05/31/2021 5:12 PM COMPARISON: 02/01/2019 CLINICAL INDICATION:Female, 65 years old with history of abdominal pain; PHH, RUQ/flank pain TECHNIQUE: Standard CT of the abdomen and pelvis without IV or oral contrast. Lack of IV or oral co ntrast limits evaluation of solid and hollow organ viscera. Coronal and sagittal reformats were perfo rmed. FINDINGS: LOWER CHEST: Trace right pleural effusion. Streaky subsegmental atelectasis in the lung bases. ABDOMEN LIVER: Multiple subcentimeter hypoattenuating structures are demonstrated throughout the liver, which are too small to accurately characterize but statistically likely to represent simple hepatic cysts GALLBLADDER AND BILE DUCTS: The gallbladder is surgically absent. PANCREAS: Unremarkable. SPLEEN: Unremarkable. ADRENAL GLANDS: Unremarkable. KIDNEYS AND URETERS: Interval development of dilation of the right collecting system secondary to obs tructing 4 mm ureteral calculus at the ureterovesicular junction. The left renal collecting system is nondistended. There is left nonobstructing renal calculi measuring 3 mm. There is fat stranding christy ges around the left kidney. Evidence of left hydronephrosis. PELVIS BLADDER: Unremarkable REPRODUCTIVE: Unremarkable. ABDOMEN & PELVIS STOMACH AND BOWEL: No evidence of bowel obstruction. PERITONEUM: No evidence of pneumoperitoneum or free fluid. VASCULATURE: No evidence of aortic aneurysm. MUSCULOSKELETAL: No acute osseous abnormalities LYMPH NODES: No gross evidence for lymphadenopathy. SOFT TISSUE/ABDOMINAL WALL: Unremarkable IMPRESSION: 1. Mild right hydroureteronephrosis secondary obstructing 4 mm calculus at the ureterovesicular junct ion. 2. Fat stranding around the left kidney which is new from 2019. This may represent nephritis in the s etting of an ascending infection. Clinical correlation is advised. There is no evidence of left obstr uctive uropathy. 3. Trace right pleural effusion.
[2021-05-31 18:44] LABS: Basophils % (A) 0 %; Eosinophils # (A) 0.1 k/uL (0-0.7); Eosinophils % (A) 1 %; HCT 42.2 % (34.0-46.0); HGB 13.7 gm/dL (11.4-16.0); Lymphocytes # (A) 0.7 k/uL (1.0-4.8); Lymphocytes % (A) 6 %; MCH 28.9 pg (25.0-35.0); MCHC 32.5 g/dL (31.0-37.0); MCV 88.7 fL (80.0-100.0); Mean Platelet Volume 8.9; Monocytes # (A) 0.5 k/uL (0-1.0); Monocytes % (A) 4 %; Neutrophils # (A) 10.2 k/uL (1.3-7.7); Neutrophils % (A) 88 %; Platelet Count 182 k/uL (150-450); RBC 4.76 m/uL (3.80-5.40); RDW 13.7 % (11.5-15.5); WBC 11.6 k/uL (3.8-10.6)
[2021-05-31 18:50] LABS: Appearance,Urine Cloudy (Clear); Bilirubin,Urine Negative (Negative); Blood,Urine Moderate (Negative); Color,Urine Yellow; Glucose,Urine (UA) Negative (Negative); Hyaline Casts,Urine 5 /lpf (0-2); Ketones,Urine Negative (Negative); Leukocyte Esterase,Urine Small (Negative); Mucus,Urine Rare /hpf; Nitrite,Urine Negative (Negative); Protein,Urine 3+ (Negative); RBC,Urine 25 /hpf (0-5); Specific Gravity,Urine 1.017 (1.001-1.035); Squamous Epithelial Cell,Urine 1 /hpf (0-4); Urobilinogen,Urine <2.0 mg/dL (<2.0); WBC,Urine 28 /hpf (0-5)
[2021-05-31 18:59] LABS: Albumin 3.7 g/dL (3.5-5.0); Calcium 9.6 mg/dL (8.4-10.2); Potassium 4.1 mmol/L (3.5-5.1); Total Bilirubin 0.5 mg/dL (0.2-1.3); Total Protein 6.6 g/dL (6.3-8.2)
[2021-06-01] MEDS ORDERED: cefTRIAXone IN SWFI 1,000 MG/10 ML SYRINGE IVP STA ×2 (01:00→01:04)
[2021-06-01] MEDS ORDERED: SODIUM CHLORIDE 0.9% 1,000 ML IV STA (01:01)
[2021-06-01] MEDS ORDERED: SODIUM CHLORIDE 0.9% 500 ML 500 ML IV STA (01:01)
[2021-06-01] MEDS ORDERED: HYDROmorphone 0.5 MG/0.5 ML SYRINGE IVP STA (01:01)
--- NOTE | 2021-06-01 01:31 | ED ---
General Adult HPI - General Chief complaint: Abdominal Pain Stated complaint: UTI, Abd Pain, sent by pcp Time Seen by Provider: 05/31/21 23:57 Source: patient, RN notes reviewed Mode of arrival: ambulatory Limitations: no limitations - History of Present Illness Initial comments: 65-year-old female with a past medical history of hyperlipidemia, hypertension, diabetes mellitus presents to the emergency room for a chief complaint of abdominal pain. She has had abdominal pain for about 3 days now. Patient states the pain is mostly on the right. Patient states she was seen here and diagnosed with a UTI. She has been taking Keflex for 2 days. Patient saw her doctor today who wanted her to come back to the ER for a CAT scan of fluids. Patient did have fevers on and off for the past couple days as well.Patient has no other complaints at this time including shortness of breath, chest pain, nausea or vomiting, headache, or visual changes. - Related Data Home Medications Medication Instructions Recorded Confirmed Potassium Chloride ER [K-Dur 20] 20 meq PO HS 08/03/14 05/29/21 Dorzolamide-Timol 2.23%/0.68% 1 drop BOTH EYES BID 03/06/21 05/29/21 [Cosopt] Ergocalciferol [Vitamin D2 (1250 50,000 unit PO DIRECTED 03/06/21 05/29/21 Mcg = 54304 Iu)] Latanoprost Ophth [Xalatan 0.005%] 1 drops BOTH EYES HS 03/06/21 05/29/21 Rosuvastatin [Crestor] 10 mg PO HS 03/06/21 05/29/21 lisinopriL [Zestril] 20 mg PO BID 03/06/21 05/29/21 sitaGLIPtin PHOS/metFORMIN HCL 1 tab PO BID 03/06/21 05/29/21 [Janumet 50-500 mg Tablet] Calcium Carbonate [Calcium] 1,200 mg PO Q48H 05/29/21 05/29/21 Ubidecarenone [Coenzyme Q10] 200 mg PO DAILY 05/29/21 05/29/21 amLODIPine [Norvasc] 5 mg PO DAILY 05/29/21 05/29/21 Previous Rx's Medication Instructions Recorded Cephalexin [Keflex] 500 mg PO Q6HR #40 cap 05/29/21 Allergies Allergy/AdvReac Type Severity Reaction Status Date / Time No Known Allergies Allergy Verified 05/31/21 16:57 Review of Systems ROS Statement: Those systems with pertinent positive or pertinent negative responses have been documented in the HPI. ROS Other: All systems not noted in ROS Statement are negative. 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 lysis of adhesions. removal ovarian cyst Past Anesthesia/Blood Transfusion Reactions: Motion Sickness, Postoperative Nausea & Vomiting (PONV) Past Psychological History: No Psychological Hx Reported Smoking Status: Never smoker Past Alcohol Use History: None Reported Past Drug Use History: None Reported - Past Family History Mother Family Medical History: Cancer Additional Family Medical History / Comment(s): bladder General Exam Limitations: no limitations General appearance: alert, in no apparent distress Head exam: Present: atraumatic Eye exam: Present: normal appearance, PERRL, EOMI. Absent: scleral icterus, conjunctival injection ENT exam: Present: normal exam, mucous membranes moist Neck exam: Present: normal inspection, full ROM. Absent: tenderness Respiratory exam: Present: normal lung sounds bilaterally. Absent: respiratory distress, wheezes Cardiovascular Exam: Present: regular rate, normal rhythm, normal heart sounds GI/Abdominal exam: Present: soft, tenderness (Tenderness to the right side of th e abdomen. No left-sided abdominal tenderness.), normal bowel sounds. Absent: distended Neurological exam: Present: alert Course Vital Signs 05/31/21 16:54 Temperature 98.9 F Pulse Rate 85 Respiratory 16 Rate Blood Pressure 100/70 O2 Sat by Pulse 98 Oximetry Medical Decision Making - Medical Decision Making Vitals are stable. Patient is afebrile here however it is noted that she is febrile and previous visit 2 days ago. CBC does show leukocytosis with a left shift. CMP reveals acute kidney injury with a creatinine of 3.72. Urinalysis does show 28 white blood cells and 25 red blood cells. Previous urine culture positive for gram-negative bacilli. Patient started on Rocephin. CT abdomen and pelvis does show right-sided hydroureteronephrosis with a 4 mm obstructing calculus at the UVJ. There is also fat stranding around the left kidney that may represent nephritis which would make sense with patient's fever and white blood cell in her urine. Case was discussed with Dr. Campa who recommends keeping the patient nothing by mouth. Case was discussed with Dr. Sosa who does accept admission. - Lab Data Result diagrams: 05/31/21 18:35 05/31/21 18:35 Lab Results 05/31/21 05/31/21 05/31/21 Range/Units 18:35 18:35 18:35 WBC 11.6 H (3.8-10.6) k/uL RBC 4.76 (3.80-5.40) m/uL Hgb 13.7 (11.4-16.0) gm/dL Hct 42.2 (34.0-46.0) % MCV 88.7 (80.0-100.0) fL MCH 28.9 (25.0-35.0) pg MCHC 32.5 (31.0-37.0) g/dL RDW 13.7 (11.5-15.5) % Plt Count 182 (150-450) k/uL MPV 8.9 Neutrophils % 88 % Lymphocytes % 6 % Monocytes % 4 % Eosinophils % 1 % Basophils % 0 % Neutrophils # 10.2 H (1.3-7.7) k/uL Lymphocytes # 0.7 L (1.0-4.8) k/uL Monocytes # 0.5 (0-1.0) k/uL Eosinophils # 0.1 (0-0.7) k/uL Basophils # 0.0 (0-0.2) k/uL Sodium 134 L (137-145) mmol/L Potassium 4.1 (3.5-5.1) mmol/L Chloride 100 (98-107) mmol/L Carbon Dioxide 20 L (22-30) mmol/L Anion Gap 14 mmol/L BUN 73 H (7-17) mg/dL Creatinine 3.72 H (0.52-1.04) mg/dL Est GFR (CKD-EPI)AfAm 14 (>60 ml/min/1.73 sqM) Est GFR (CKD-EPI)NonAf 12 (>60 ml/min/1.73 sqM) Glucose 114 H (74-99) mg/dL Calcium 9.6 (8.4-10.2) mg/dL Total Bilirubin 0.5 (0.2-1.3) mg/dL AST 19 (14-36) U/L ALT 20 (4-34) U/L Alkaline Phosphatase 75 (38-126) U/L Total Protein 6.6 (6.3-8.2) g/dL Albumin 3.7 (3.5-5.0) g/dL Amylase 54 (30-110) U/L Lipase 131 (23-300) U/L Urine Color Yellow Urine Appearance Cloudy H (Clear) Urine pH 6.0 (5.0-8.0) Ur Specific [place] 1.017 (1.001-1.035) Urine Protein 3+ H (Negative) Urine Glucose (UA) Negative (Negative) Urine Ketones Negative (Negative) Urine Blood Moderate H (Negative) Urine Nitrite Negative (Negative) Urine Bilirubin Negative (Negative) Urine Urobilinogen <2.0 (<2.0) mg/dL Ur Leukocyte Esterase Small H (Negative) Urine RBC 25 H (0-5) /hpf Urine WBC 28 H (0-5) /hpf Ur Squamous Epith Cells 1 (0-4) /hpf Hyaline Casts 5 H (0-2) /lpf Urine Mucus Rare H (None) /hpf Disposition Clinical Impression: CRICKET (acute kidney injury), Kidney stone, Pyelonephritis Disposition: ADMITTED IP TO THIS HOSP Is patient prescribed a controlled substance at d/c from ED?: No Referrals: Hans Redmond MD [Primary Care Provider] - 1-2 days Time of Disposition: 01:41
[2021-06-01] MEDS ORDERED: NALOXONE 0.4 MG/ML 1 ML VIAL IV PRN (01:41)
[2021-06-01] MEDS ORDERED: HYDROmorphone 0.5 MG/0.5 ML SYRINGE IVP PRN (01:41)
[2021-06-01] MEDS ORDERED: ONDANSETRON 4 MG/2 ML VIAL IVP PRN (01:41)
[2021-06-01] MEDS: SODIUM CHLORIDE 0.9% 1,000 ML IV SCH ×3 (02:56→16:22)
[2021-06-01 03:17] LABS: INR 0.9 (<1.2); Partial Thromboplastin Time 26.2 sec (22.0-30.0); Prothrombin Time 9.4 sec (9.0-12.0)
[2021-06-01 10:58] LABS: African American GFR (CKD) 15 (>60 ml/min/1.73 sqM); Anion Gap 14 mmol/L; Blood Urea Nitrogen 85 mg/dL (7-17); Calcium 9.5 mg/dL (8.4-10.2); Carbon Dioxide 19 mmol/L (22-30); Chloride 100 mmol/L (98-107); Glucose 102 mg/dL (74-99); Non-African American GFR(CKD) 13 (>60 ml/min/1.73 sqM); Sodium 133 mmol/L (137-145)
[2021-06-01 11:06] LABS: Potassium 4.4 mmol/L (3.5-5.1)
[2021-06-01 14:10] LABS: Glucose,Whole Blood 75 mg/dL (75-99)
[2021-06-01] MEDS: SODIUM CHLORIDE 0.9% 1,000 ML IV ONE ×3 (14:17→16:21)
[2021-06-01] MEDS ORDERED: DEXAMETHASONE SOD PHOSPHATE 10 MG/ML 1 ML VIAL IVP ONE (14:26)
[2021-06-01] MEDS ORDERED: ONDANSETRON 4 MG/2 ML VIAL IVP ONE (14:26)
--- NOTE | 2021-06-01 14:26 | P.GSCN ---
History of Present Illness Consult date: 06/01/21 Reason for Consult: Right sided ureteral stone History of present illness: This is a 65 FEMALE admitted to the hospital with a 4 mm right-sided ureteral stone. Of note she also had evidence of acute kidney injury on presentation, creatinine at 3.7 from a baseline of 0.6. Her pain is associated with nausea and vomiting. Denies any previous history of stones. Of note she was in the ER on May 29, she was discharged home, urine culture at that time showed gram- negative bacilli. CT showed evidence of a 4 mm right-sided ureteral stone, there is stranding around the left kidney, but no obstructive stones or hydronephrosis is visualized. Complain some dysuria, but denies any gross hematuria. 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 lysis of adhesions. removal ovarian cyst Past Anesthesia/Blood Transfusion Reactions: Motion Sickness, Postoperative Nausea & Vomiting (PONV) Past Psychological History: No Psychological Hx Reported Smoking Status: Never smoker Past Alcohol Use History: None Reported Past Drug Use History: None Reported - Past Family History Mother Family Medical History: Cancer Additional Family Medical History / Comment(s): bladder Medications and Allergies Home Medications Medication Instructions Recorded Confirmed Type Potassium Chloride ER [K-Dur 20] 20 meq PO DAILY 08/03/14 06/01/21 History Dorzolamide-Timol 2.23%/0.68% 1 drop BOTH EYES BID 03/06/21 06/01/21 History [Cosopt] Ergocalciferol [Vitamin D2 (1250 50,000 unit PO DIRECTED 03/06/21 06/01/21 History Mcg = 13256 Iu)] Latanoprost Ophth [Xalatan 0.005%] 1 drops BOTH EYES HS 03/06/21 06/01/21 History Rosuvastatin [Crestor] 10 mg PO HS 03/06/21 06/01/21 History lisinopriL [Zestril] 20 mg PO BID 03/06/21 06/01/21 History sitaGLIPtin PHOS/metFORMIN HCL 1 tab PO BID 03/06/21 06/01/21 History [Janumet 50-500 mg Tablet] Calcium Carbonate [Calcium] 1,200 mg PO Q48H 05/29/21 06/01/21 History Cephalexin [Keflex] 500 mg PO Q6HR #40 cap 05/29/21 06/01/21 Rx Ubidecarenone [Coenzyme Q10] 200 mg PO DAILY 05/29/21 06/01/21 History amLODIPine [Norvasc] 5 mg PO DAILY 05/29/21 06/01/21 History Allergies Allergy/AdvReac Type Severity Reaction Status Date / Time No Known Allergies Allergy Verified 06/01/21 14:15 Surgical - Exam Vital Signs Temp Pulse Resp BP Pulse Ox 98.9 F 85 16 100/70 98 05/31/21 16:54 05/31/21 16:54 05/31/21 16:54 05/31/21 16:54 05/31/21 16:54 - General well developed, well nourished, no distress, moderate pain - Eyes normal ocular movement, no pale - ENT normal nares, normal mucosa - Respiratory normal expansion, normal respiratory effort - Abdomen Abdomen: soft, non tender - Psychiatric oriented to time, oriented to person, oriented to place, speech is normal Results - Labs 05/31/21 18:35 06/01/21 09:50 Abnormal Lab Results - Last 24 Hours (Table) 05/31/21 05/31/21 05/31/21 Range/Units 18:35 18:35 18:35 WBC 11.6 H (3.8-10.6) k/uL Neutrophils # 10.2 H (1.3-7.7) k/uL Lymphocytes # 0.7 L (1.0-4.8) k/uL Sodium 134 L (137-145) mmol/L Carbon Dioxide 20 L (22-30) mmol/L BUN 73 H (7-17) mg/dL Creatinine 3.72 H (0.52-1.04) mg/dL Glucose 114 H (74-99) mg/dL Urine Appearance Cloudy H (Clear) Urine Protein 3+ H (Negative) Urine Blood Moderate H (Negative) Ur Leukocyte Esterase Small H (Negative) Urine RBC 25 H (0-5) /hpf Urine WBC 28 H (0-5) /hpf Hyaline Casts 5 H (0-2) /lpf Urine Mucus Rare H (None) /hpf 06/01/21 Range/Units 09:50 WBC (3.8-10.6) k/uL Neutrophils # (1.3-7.7) k/uL Lymphocytes # (1.0-4.8) k/uL Sodium 133 L (137-145) mmol/L Carbon Dioxide 19 L (22-30) mmol/L BUN 85 H (7-17) mg/dL Creatinine 3.43 H (0.52-1.04) mg/dL Glucose 102 H (74-99) mg/dL Urine Appearance (Clear) Urine Protein (Negative) Urine Blood (Negative) Ur Leukocyte Esterase (Negative) Urine RBC (0-5) /hpf Urine WBC (0-5) /hpf Hyaline Casts (0-2) /lpf Urine Mucus (None) /hpf Microbiology - Last 24 Hours (Table) 05/31/21 18:35 Urine Culture - Preliminary Urine,Voided Diabetes panel 05/31/21 06/01/21 Range/Units 18:35 09:50 Sodium 134 L 133 L (137-145) mmol/L Potassium 4.1 4.4 (3.5-5.1) mmol/L Chloride 100 100 (98-107) mmol/L Carbon Dioxide 20 L 19 L (22-30) mmol/L BUN 73 H 85 H (7-17) mg/dL Creatinine 3.72 H 3.43 H (0.52-1.04) mg/dL Glucose 114 H 102 H (74-99) mg/dL Calcium 9.6 9.5 (8.4-10.2) mg/dL AST 19 (14-36) U/L ALT 20 (4-34) U/L Alkaline Phosphatase 75 (38-126) U/L Total Protein 6.6 (6.3-8.2) g/dL Albumin 3.7 (3.5-5.0) g/dL Calcium panel 05/31/21 06/01/21 Range/Units 18:35 09:50 Calcium 9.6 9.5 (8.4-10.2) mg/dL Albumin 3.7 (3.5-5.0) g/dL Pituitary panel 05/31/21 06/01/21 Range/Units 18:35 09:50 Sodium 134 L 133 L (137-145) mmol/L Potassium 4.1 4.4 (3.5-5.1) mmol/L Chloride 100 100 (98-107) mmol/L Carbon Dioxide 20 L 19 L (22-30) mmol/L BUN 73 H 85 H (7-17) mg/dL Creatinine 3.72 H 3.43 H (0.52-1.04) mg/dL Glucose 114 H 102 H (74-99) mg/dL Calcium 9.6 9.5 (8.4-10.2) mg/dL Adrenal panel 05/31/21 06/01/21 Range/Units 18:35 09:50 Sodium 134 L 133 L (137-145) mmol/L Potassium 4.1 4.4 (3.5-5.1) mmol/L Chloride 100 100 (98-107) mmol/L Carbon Dioxide 20 L 19 L (22-30) mmol/L BUN 73 H 85 H (7-17) mg/dL Creatinine 3.72 H 3.43 H (0.52-1.04) mg/dL Glucose 114 H 102 H (74-99) mg/dL Calcium 9.6 9.5 (8.4-10.2) mg/dL Total Bilirubin 0.5 (0.2-1.3) mg/dL AST 19 (14-36) U/L ALT 20 (4-34) U/L Alkaline Phosphatase 75 (38-126) U/L Total Protein 6.6 (6.3-8.2) g/dL Albumin 3.7 (3.5-5.0) g/dL Assessment and Plan Assessment: 65-year-old female admitted to the hospital with a 4 mm right-sided UVJ stone, on presentation creatinine 0.7 from a baseline of 0.6, urine culture from May 29 scrotum gram-negative bacilli area CT reviewed showed evidence of a 4 mm right-sided UVJ stone, evidence of stranding along the left kidney. Discussed with her given the finding of acute kidney injury, UTI, and her symptoms I recommend proceeding with right-sided stent placement. Discussed with her given the evidence of stranding on the left kidney and her acute kidney injury if there is no reflux on of urine on the left side will perform a left retrograde pyelogram. Risk and benefit of surgery were discussed -OR for right-sided stent placement, possible left retrograde pyelogram
[2021-06-01] MEDS ORDERED: MIDAZOLAM 2 MG/2 ML VIAL ONE (15:05)
[2021-06-01] MEDS ORDERED: PROPOFOL 10 MG/ML 20 ML VIAL IV ONE (15:05)
[2021-06-01] MEDS ORDERED: PHENYLEPHRINE-0.9% NACL SYG 1,000 MCG/10 ML SYRINGE ONE (15:05)
[2021-06-01] MEDS ORDERED: LIDOCAINE 1% INJ 10MG/ML (20 ML MDV) ONE (15:05)
[2021-06-01] MEDS ORDERED: fentaNYL (PF) 50 MCG/ML 2 ML AMP ONE (15:05)
[2021-06-01] MEDS ORDERED: SODIUM CHLORIDE 0.9% 100 ML with ceFAZolin 2,000 MG IV ONE ×2 (15:17)
[2021-06-01] MEDS ORDERED: IOPAMIDOL-370 50ML BTL MISCELLANE ONE (15:19)
[2021-06-01 15:42] LABS: Glucose,Whole Blood 80 mg/dL (75-99)
[2021-06-01] MEDS ORDERED: SODIUM CHLORIDE 0.9% 1,000 ML IV ONE ×2 (15:47)
[2021-06-01] MEDS ORDERED: hydrALAZINE HCL 20 MG/ML 1 ML VIAL IVP PRN (19:11)
--- NOTE | 2021-06-01 19:12 | P.HPIM ---
History of Present Illness H&P Date: 06/01/21 Chief Complaint: Flank pain, nausea vomiting new kidney stone This is 65-year-old pleasant female. Patient of Dr. Redmond Has underlying history of diabetes mellitus type 2, hypertension, thyroid disorder, hyperlipidemia, and optic hypertension, who is doing well, until May 29, for which she was presenting emergency room, secondary to flank pain related to urinary tract infection. She was discharged on oral Keflex, 500 mg 4 times a day, along with Tylenol and Motrin alternating every 3 hours as needed for fever control. She presents emergency room this time, secondary to dysuria, nausea and vomiting,. In the emergency room, she had a 4 mm right-sided ureteral stone, has interval development of dilatation of right collecting system, at the junction of the ureter repair of vesicovaginal junction, 4 mm calculus was noted on Right side. There is a left nonobstructing renal calculi, 3 mm, there is fat stranding changes around the left kidney. NO Evidence of left hydronephrosis, with acute kidney injury with creatinine of 3.7, with a previous baseline of 0.6. Urine culture performed on May 29, her original ER visit, shows gram-negative bacilli, patient was consulted with urology, Dr. Alcantara started on IV Rocephin, blood cultures obtained. Suspected ascending infection involving the urinary tract symptoms, suspicious for pyelonephritis left side with An infected kidney stones. On 06/01, patient underwent cystoscopy, with insertion of right ureteral stent, and a left retrograde pyelogram. Performed by urology, Dr. Alcantara Review of Systems Constitutional: Reports as per HPI, Reports chills, Reports fever, Reports poor appetite Ears, nose, mouth and throat: Reports as per HPI, Denies ant. neck pain, Denies bleeding gums, Denies dental pain, Denies dysphagia, Denies epistaxis, Denies headache, Denies hoarseness, Denies mouth pain, Denies nasal congestion, Denies nasal discharge, Denies neck fullness/pressure, Denies neck lump, Denies nose pain, Denies odynophagia, Denies post-nasal drip, Denies sinus pain, Denies sinus pressure, Denies swelling in mouth, Denies swelling in throat, Denies sore throat, Denies vertigo, Denies voice changes Cardiovascular: Reports as per HPI, Reports edema, Denies chest pain, Denies claudication, Denies decreased exercise tolerance, Denies dyspnea on exertion, Denies high blood pressure, Denies irregular heart beat, Denies leg edema, Denies lightheadedness, Denies orthopnea, Denies palpitations, Denies paroxysmal nocturnal dyspnea, Denies phlebitis, Denies rapid heart beat, Denies shortness of breath, Denies syncope Respiratory: Reports as per HPI, Denies congestion, Denies cough, Denies cough with sputum, Denies dyspnea, Denies excessive sputum, Denies hemoptysis, Denies home oxygen, Denies pain, Denies pain on inspiration, Denies pleurisy, Denies respiratory infections, Denies sleep apnea, Denies snoring, Denies wheezing Gastrointestinal: Reports as per HPI, Reports nausea, Reports vomiting Genitourinary: Reports as per HPI, Reports dysuria, Reports flank pain, Reports pelvic pain, Reports urgency Menstruation: Reports as per HPI Musculoskeletal: Reports as per HPI, Denies arm numbness/tingling, Denies atrophy, Denies fractures, Denies frequent falls, Denies gait dysfunction, Denies hot joints, Denies leg numbness/tingling, Denies limitation of motion, Denies loss of height, Denies low back pain, Denies morning stiffness, Denies muscle cramps, Denies muscle weakness, Denies myalgias, Denies neck pain, Denies neck stiffness, Denies prior amputations, Denies redness of joints, Denies shooting arm pain, Denies shooting leg pain Integumentary: Reports as per HPI Neurological: Reports as per HPI Psychiatric: Reports as per HPI Endocrine: Reports as per HPI, Reports cold intolerance Past Medical History Past Medical History: Diabetes Mellitus, Hyperlipidemia, Hypertension, Thyroid Disorder Additional Past Medical History / Comment(s): optic HTN History of Any Multi-Drug Resistant Organisms: None Reported Past Surgical History: Cholecystectomy Additional Past Surgical History / Comment(s): colonoscopy. lysis of adhesions. removal ovarian cyst Past Anesthesia/Blood Transfusion Reactions: Motion Sickness, Postoperative Nausea & Vomiting (PONV) Past Psychological History: No Psychological Hx Reported Smoking Status: Never smoker Past Alcohol Use History: None Reported Past Drug Use History: None Reported - Past Family History Mother Family Medical History: Cancer Additional Family Medical History / Comment(s): bladder Medications and Allergies Home Medications Medication Instructions Recorded Confirmed Type Potassium Chloride ER [K-Dur 20] 20 meq PO DAILY 08/03/14 06/01/21 History Dorzolamide-Timol 2.23%/0.68% 1 drop BOTH EYES BID 03/06/21 06/01/21 History [Cosopt] Ergocalciferol [Vitamin D2 (1250 50,000 unit PO DIRECTED 03/06/21 06/01/21 History Mcg = 87606 Iu)] Latanoprost Ophth [Xalatan 0.005%] 1 drops BOTH EYES HS 03/06/21 06/01/21 History Rosuvastatin [Crestor] 10 mg PO HS 03/06/21 06/01/21 History lisinopriL [Zestril] 20 mg PO BID 03/06/21 06/01/21 History sitaGLIPtin PHOS/metFORMIN HCL 1 tab PO BID 03/06/21 06/01/21 History [Janumet 50-500 mg Tablet] Calcium Carbonate [Calcium] 1,200 mg PO Q48H 05/29/21 06/01/21 History Cephalexin [Keflex] 500 mg PO Q6HR #40 cap 05/29/21 06/01/21 Rx Ubidecarenone [Coenzyme Q10] 200 mg PO DAILY 05/29/21 06/01/21 History amLODIPine [Norvasc] 5 mg PO DAILY 05/29/21 06/01/21 History Allergies Allergy/AdvReac Type Severity Reaction Status Date / Time No Known Allergies Allergy Verified 06/01/21 14:15 Physical Exam Vitals: Vital Signs Temp Pulse Pulse Resp BP BP Pulse Ox 06/01/21 14:02 98.7 F 83 18 117/55 95 06/01/21 14:00 98.4 F 83 17 117/69 97 06/01/21 08:00 98.3 F 83 18 118/66 96 06/01/21 04:16 98.4 F 18 114/67 96 05/31/21 16:54 98.9 F 85 16 100/70 98 Intake and Output 05/31/21 06/01/21 06/01/21 22:59 06:59 14:59 Intake Total 260 0 Balance 260 0 Intake: IV 0 Intake, IV Titration 260 Amount Sodium Chloride 0.9% 1, 260 000 ml @ 130 mls/hr IV . Q7H42M [facility] Rx#:[id number] Other: Voiding Method Toilet Bedside Commode Weight 83.915 kg 83.915 kg - Constitutional General appearance: cooperative, no acute distress - EENT Eyes: EOMI, PERRLA, dentition normal, normal appearance ENT: NA/AT, normal oropharynx - Neck Neck: normal ROM - Respiratory Respiratory: bilateral: CTA, negative: diminished, dullness, rales, rhonchi, w heezing - Cardiovascular Rhythm: regular Abnormal Heart Sounds: no systolic murmur, no diastolic murmur, no rub, no S3 Gallop, no S4 Gallop, no click, no other - Gastrointestinal General gastrointestinal: normal bowel sounds, soft - Integumentary Integumentary: normal, normal turgor - Neurologic Neurologic: CNII-XII intact - Musculoskeletal Musculoskeletal: gait normal, strength equal bilaterally - Psychiatric Psychiatric: A&O x's 3, appropriate affect, intact judgment & insight Results CBC & Chem 7: 05/31/21 18:35 06/01/21 09:50 Labs: Abnormal Lab Results - Last 24 Hours (Table) 05/31/21 05/31/21 05/31/21 Range/Units 18:35 18:35 18:35 WBC 11.6 H (3.8-10.6) k/uL Neutrophils # 10.2 H (1.3-7.7) k/uL Lymphocytes # 0.7 L (1.0-4.8) k/uL Sodium 134 L (137-145) mmol/L Carbon Dioxide 20 L (22-30) mmol/L BUN 73 H (7-17) mg/dL Creatinine 3.72 H (0.52-1.04) mg/dL Glucose 114 H (74-99) mg/dL Urine Appearance Cloudy H (Clear) Urine Protein 3+ H (Negative) Urine Blood Moderate H (Negative) Ur Leukocyte Esterase Small H (Negative) Urine RBC 25 H (0-5) /hpf Urine WBC 28 H (0-5) /hpf Hyaline Casts 5 H (0-2) /lpf Urine Mucus Rare H (None) /hpf 06/01/21 Range/Units 09:50 WBC (3.8-10.6) k/uL Neutrophils # (1.3-7.7) k/uL Lymphocytes # (1.0-4.8) k/uL Sodium 133 L (137-145) mmol/L Carbon Dioxide 19 L (22-30) mmol/L BUN 85 H (7-17) mg/dL Creatinine 3.43 H (0.52-1.04) mg/dL Glucose 102 H (74-99) mg/dL Urine Appearance (Clear) Urine Protein (Negative) Urine Blood (Negative) Ur Leukocyte Esterase (Negative) Urine RBC (0-5) /hpf Urine WBC (0-5) /hpf Hyaline Casts (0-2) /lpf Urine Mucus (None) /hpf Microbiology - Last 24 Hours (Table) 05/31/21 18:35 Urine Culture - Preliminary Urine,Voided Assessment and Plan Plan: 1. Pyelonephritis, with left ureteral stone, with fatty stranding noted on the kidneys, and right mild hydronephrosis, 4 mm ureteral stone, UPJ, status post cystoscopy, and placement of right kidney stent on 06/01 2021, left retrograde pyelogram patient is receiving IV hydration, Rocephin 1 g every 24 hours, pending cultures, urine and blood. 2. Mild right hydronephrosis, with significant acute kidney failure, most likely related to obstructive uropathy as well as ATN, related to NSAID use. Consider discontinued, IV for hydration, monitor for renal function test. 3. Nephrolithiasis bilateral see above, check for PTH levels, hold off calcium supplementation, check for vitamin D 4. Acute kidney failure, secondary to mild obstructive uropathy, however ATN is suspected secondary to NSAID use. Check for CPK for rhabdo, IV for hydration, monitor kidney function test 4. History of hyperparathyroidism, patient follows with endocrine, not currently treated with any medications, check levels 5. Diabetes mellitus type 2 hold Janumet, secondary to elevated creatinine 6. Sepsis with urinary tract infection received oral antibiotic prior to admission, IV Rocephin at this time. Pending cultures 7. Hypertension hold VALARIE inhibitor Zestril continue amlodipine 8. Hyperlipidemia on Crestor 9. Thyroid disorder, not on any thyroid supplementation at this time GI prophylaxis Protonix DVT prophylaxis, heparin subcu, twice a day
--- NOTE | 2021-06-01 20:46 | FL ---
EXAMINATION TYPE: FL urography retrograde DATE OF EXAM: 06/01/2021 COMPARISON: NONE HISTORY: Fluoroscopy time. Fluoroscopy was provided to the referring clinician.
[2021-06-01] MEDS ORDERED: ATORVASTATIN 20 MG TAB PO SCH (21:00)
[2021-06-01] MEDS ORDERED: LATANOPROST 0.005% OPHTH DROPS 2.5 ML BTL BOTH EYES SCH (21:00)
[2021-06-01] MEDS ORDERED: metFORMIN 500 MG TAB PO SCH (21:00)
[2021-06-01] MEDS ORDERED: lisinopriL 20 MG TAB PO SCH (21:00)
[2021-06-01] MEDS: HEPARIN SODIUM,PORCINE/PF 5,000 UNIT/0.5 ML SYRINGE SQ SCH (21:02)
[2021-06-01] MEDS: DORZOLAMIDE-TIMOLOL 2.23%/0.68 10ML BTL BOTH EYES SCH (21:02)
[2021-06-02] MEDS: SODIUM CHLORIDE 0.9% 1,000 ML IV SCH ×2 (03:38→07:37)
[2021-06-02 07:02] LABS: Glucose,Whole Blood 126 mg/dL (75-99)
[2021-06-02] MEDS: HEPARIN SODIUM,PORCINE/PF 5,000 UNIT/0.5 ML SYRINGE SQ SCH (07:33)
[2021-06-02] MEDS: DORZOLAMIDE-TIMOLOL 2.23%/0.68 10ML BTL BOTH EYES SCH (07:42)
[2021-06-02 08:25] VITALS: RESP 16
[2021-06-02] MEDS ORDERED: POTASSIUM CHLORIDE ER 20 MEQ TAB.ER PO SCH (09:00)
[2021-06-02] MEDS ORDERED: amLODIPine 5 MG TAB PO SCH (09:00)
[2021-06-02] MEDS ORDERED: LINAGLIPTIN 5 MG TABLET PO SCH (09:00)
[2021-06-02 10:12] LABS: Basophils # (A) 0.02 X 10*3/uL (0.00-0.10); Basophils % (A) 0.3 %; Eosinophils # (A) 0 X 10*3/uL (0.04-0.35); Eosinophils % (A) 0 %; HCT 34.4 % (37.2-46.3); HGB 11.1 g/dL (12.0-15.0); Lymphocytes # (A) 0.54 X 10*3/uL (0.90-5.00); MCH 28.1 pg (27.0-32.0); MCHC 32.3 g/dL (32.0-37.0); MCV 87.1 fL (80.0-97.0); Mean Platelet Volume 11.8 fL (9.5-12.2); Monocytes # (A) 0.53 X 10*3/uL (0.20-1.00); Monocytes % (A) 6.9 %; Neutrophils # (A) 6.54 X 10*3/uL (1.80-7.70); Platelet Count 174 X 10*3/uL (140-440); RBC 3.95 X 10*6/uL (4.10-5.20); RDW 14.8 % (11.5-14.5); WBC 7.69 X 10*3/uL (4.50-10.00)
[2021-06-02 10:39] LABS: ALT 9 U/L (8-44); AST 9 U/L (13-35); African American GFR (CKD) 22.4 (60.0-200.0); Albumin/Globulin Ratio 1.43 (1.60-3.17); Alkaline Phosphatase 60 U/L (41-126); BUN/Creat Ratio 28.25 Ratio (12.00-20.00); Blood Urea Nitrogen 70.9 mg/dL (9.0-27.0); Calcium 9.1 mg/dL (8.7-10.3); Carbon Dioxide 15.9 mmol/L (20.0-27.5); Chloride 107 mmol/L (96-109); Creatine Kinase 19 U/L (26-186); Globulin 2.1 g/dL (1.6-3.3); Glucose 128 mg/dL (70-110); Non-African American GFR(CKD) 19.3 (60.0-200.0); Potassium 4.5 mmol/L (3.5-5.5); Sodium 137 mmol/L (135-145); Total Bilirubin <0.20 mg/dL (0.30-1.20); Total Protein 5.1 g/dL (6.2-8.2)
--- NOTE | 2021-06-02 11:22 | P.OP ---
Date of Procedure: 06/01/21 Preoperative Diagnosis: Right-sided ureteral stone, acute kidney injury Postoperative Diagnosis: Same Procedure(s) Performed: Cystoscopy, right stent placement, left retrograde pyelogram Implants: 6-Irish by 24 cm stent in the right ureter Anesthesia: BERTHA Surgeon: Wally Alcantara Estimated Blood Loss (ml): 1 Pathology: none sent Condition: stable Disposition: PACU Indications for Procedure: 65-year-old female admitted to the hospital with a 4 mm right-sided UVJ stone, on presentation creatinine 0.7 from a baseline of 0.6, urine culture from May 29 scrotum gram-negative bacilli area CT reviewed showed evidence of a 4 mm right-sided UVJ stone, evidence of stranding along the left kidney. Discussed with her given the finding of acute kidney injury, UTI, and her symptoms I recommend proceeding with right-sided stent placement. Discussed wi th her given the evidence of stranding on the left kidney and her acute kidney injury if there is no reflux on of urine on the left side will perform a left retrograde pyelogram. Risk and benefit of surgery were discussed Description of Procedure: Patient was brought to the operating room, general anesthesia was induced. She was prepped and draped so fashion a placement dorsal lithotomy position. Cystoscopy fitted with a 21-Irish sheath was inserted per urethra, cystoscopy was performed showed no abnormality within the bladder. Attention was then carried to the right ureteral orifice was intubated with a sensor wire. Next a ureteral stent was passed over the wire, the proximal curl was visualized on fluoroscopy and distal curl was visualized using the cystoscope. Attention was then carried to the left ureteral orifice. At this time an open-ended catheter was placed, retrograde pyelogram was performed on that side which showed no filling defect or hydronephrosis. There was adequate drainage of contrast. The patient was awakened from anesthesia and taken to recovery in stable condition
--- NOTE | 2021-06-02 11:24 | P.PN ---
Subjective Progress Note Date: 06/02/21 no acute overnight events, pain is controlled. Creatinine down to 2.5 from 3.4. Urine culture from May 29 grown Klebsiella Objective - Vital Signs Vital signs: Vital Signs Temp 97.7 F 06/02/21 08:00 Pulse 66 06/02/21 08:00 Resp 16 06/02/21 08:00 BP 109/59 06/02/21 08:00 Pulse Ox 97 06/02/21 08:00 Intake & Output 06/01/21 06/02/21 06/02/21 18:59 06:59 18:59 Intake Total 600 600 Balance 600 600 Weight 83.915 kg Intake: IV 600 Oral 600 Other: Voiding Method Toilet Toilet Bedside Commode # Voids 3 3 - Constitutional General appearance: Present: no acute distress - Psychiatric Psychiatric: Present: A&O x's 3 - Labs CBC & Chem 7: 06/02/21 05:30 06/02/21 05:30 Labs: Abnormal Lab Results - Last 24 Hours (Table) 06/02/21 06/02/21 06/02/21 Range/Units 05:30 05:30 05:30 RBC 3.95 L (4.10-5.20) X 10*6/uL Hgb 11.1 L (12.0-15.0) g/dL Hct 34.4 L (37.2-46.3) % RDW 14.8 H (11.5-14.5) % Immature Gran # 0.06 H (0.00-0.04) X 10*3/uL Lymphocytes # 0.54 L (0.90-5.00) X 10*3/uL Eosinophils # 0 L (0.04-0.35) X 10*3/uL Carbon Dioxide 15.9 L (20.0-27.5) mmol/L BUN 70.9 H (9.0-27.0) mg/dL Creatinine 2.5 H (0.6-1.5) mg/dL Est GFR (CKD-EPI)AfAm 22.4 L (60.0-200.0) Est GFR (CKD-EPI)NonAf 19.3 L (60.0-200.0) BUN/Creatinine Ratio 28.25 H (12.00-20.00) Ratio Glucose 128 H (70-110) mg/dL POC Glucose (mg/dL) (75-99) mg/dL Total Bilirubin <0.20 L (0.30-1.20) mg/dL AST 9 L (13-35) U/L Creatine Kinase 19 L (26-186) U/L Total Protein 5.1 L (6.2-8.2) g/dL Albumin 3.0 L (3.8-4.9) g/dL Albumin/Globulin Ratio 1.43 L (1.60-3.17) g/dL Vitamin D 25-Hydroxy 22.7 L (30.0-100.0) ng/mL PTH Intact 128.0 H (14.0-72.0) pg/mL 06/02/21 Range/Units 07:01 RBC (4.10-5.20) X 10*6/uL Hgb (12.0-15.0) g/dL Hct (37.2-46.3) % RDW (11.5-14.5) % Immature Gran # (0.00-0.04) X 10*3/uL Lymphocytes # (0.90-5.00) X 10*3/uL Eosinophils # (0.04-0.35) X 10*3/uL Carbon Dioxide (20.0-27.5) mmol/L BUN (9.0-27.0) mg/dL Creatinine (0.6-1.5) mg/dL Est GFR (CKD-EPI)AfAm (60.0-200.0) Est GFR (CKD-EPI)NonAf (60.0-200.0) BUN/Creatinine Ratio (12.00-20.00) Ratio Glucose (70-110) mg/dL POC Glucose (mg/dL) 126 H (75-99) mg/dL Total Bilirubin (0.30-1.20) mg/dL AST (13-35) U/L Creatine Kinase (26-186) U/L Total Protein (6.2-8.2) g/dL Albumin (3.8-4.9) g/dL Albumin/Globulin Ratio (1.60-3.17) g/dL Vitamin D 25-Hydroxy (30.0-100.0) ng/mL PTH Intact (14.0-72.0) pg/mL Microbiology - Last 24 Hours (Table) 05/31/21 18:35 Urine Culture - Final Urine,Voided 06/01/21 02:43 Blood Culture - Preliminary Blood No Growth after 24 hours 06/01/21 02:21 Blood Culture - Preliminary Blood No Growth after 24 hours Assessment and Plan Assessment: 65-year-old female admitted to the hospital with a 4 mm right-sided UVJ stone, on presentation creatinine 3.7 from a baseline of 0.6, urine culture from May [address] reviewed showed evidence of a 4 mm right- sided UVJ stone, underwent right-sided stent placement yesterday. Pain is controlled, creatinine down to 2.5 from 3.4 yesterday -okay for discharge from urology standpoint, can be discharged in 14 days of PO antibiotics . We will set her up for an outpatient right-sided ureteroscopy and stent removal
[2021-06-02 11:27] LABS: Glucose,Whole Blood 145 mg/dL (75-99)
[2021-06-02 14:21] VITALS: BP 103/57; PULSE 71; TEMP 98
--- NOTE | 2021-06-02 17:56 | P.DS ---
Providers Date of admission: 06/01/21 01:41 Expected date of discharge: 06/02/21 Attending physician: Mariangel Sosa Consults: 06/01/21 01:42 Consult Physician Routine Consulting Provider: Wally Alcantara Consult Reason/Comments: septic stone, CRICKET Do you want consulting provider notified?: Already Contacted Primary care physician: [facility] Course: Chief Complaint: Flank pain, nausea vomiting new kidney stone This is 65-year-old pleasant female. Patient of Dr. Redmond Has underlying history of diabetes mellitus type 2, hypertension, thyroid disorder, hyperlipidemia, and optic hypertension, who is doing well, until May 29, for which she was presenting emergency room, secondary to flank pain related to urinary tract infection. She was discharged on oral Keflex, 500 mg 4 times a day, along with Tylenol and Motrin alternating every 3 hours as needed for fever control. She presents emergency room this time, secondary to dysuria, nausea and vomiting,. In the emergency room, she had a 4 mm right-sided ureteral stone, has interval development of dilatation of right collecting system, at the junction of the ureter repair of vesicovaginal junction, 4 mm calculus was noted on Right side. There is a left nonobstructing renal calculi, 3 mm, there is fat stranding changes around the left kidney. NO Evidence of left hydronephros is, with acute kidney injury with creatinine of 3.7, with a previous baseline of 0.6. Urine culture performed on May 29, her original ER visit, shows gram- negative bacilli, patient was consulted with urology, Dr. Alcantara started on IV Rocephin, blood cultures obtained. Suspected ascending infection involving the urinary tract symptoms, suspicious for pyelonephritis left side with An infecte d kidney stones. On 06/01, patient underwent cystoscopy, with insertion of right ureteral stent, and a left retrograde pyelogram. Performed by urology, Dr. Alcantara 06/02. Vision is significant for the better, with no flank pain, patient was seen by urology today, with plans for home discharge, and outpatient follow-up of renal function. Creatinine is improved, to 2.5, patient was instructed to discontinue metformin at this time, and lisinopril 20 mg twice a day. Patient's blood pressure remained to be in the systolic 105-110, Ceftin to be discharged for at least 14 date regimen, one stent is on board. Patient plans on going to [place], and would return for her follow-up after June 15. Patient has no appointment, on June 03, in the office, instructed to have increased fluid intake, no NSAID use, no asymmetry patient, and metformin for at least a week. Until we know function would improve. Cultures in the urine is currently pending at this time patient feels ready for discharge, with outpatient monitoring final diagnosis Plan: 1. Pyelonephritis, with left ureteral stone, with fatty stranding noted on the kidneys, and right mild hydronephrosis, 4 mm ureteral stone, UPJ, status post cystoscopy, and placement of right kidney stent on 06/01 2021, left retrograde pyelogram patient is receiving IV hydration, Rocephin 1 g every 24 hours, pending cultures, urine and blood. 2. Mild right hydronephrosis, with significant acute kidney failure, most likely related to obstructive uropathy as well as ATN, related to NSAID use. Consider discontinued, IV for hydration, monitor for renal function test. 3. Nephrolithiasis bilateral see above, check for PTH levels, hold off calcium supplementation, check for vitamin D 4. Acute kidney failure, secondary to mild obstructive uropathy, however ATN is suspected secondary to NSAID use. Check for CPK for rhabdo, IV for hydration, monitor kidney function test 4. History of hyperparathyroidism, patient follows with endocrine, not currently treated with any medications, check levels 5. Diabetes mellitus type 2 hold Janumet, secondary to elevated creatinine 6. Sepsis with urinary tract infection received oral antibiotic prior to admission, IV Rocephin at this time. Pending cultures 7. Hypertension hold VALARIE inhibitor Zestril continue amlodipine 8. Hyperlipidemia on Crestor 9. Thyroid disorder, not on any thyroid supplementation at this time GI prophylaxis Protonix DVT prophylaxis, heparin subcu, twice a day Discharge Medication List Dorzolamide-Timol 2.23%/0.68% [Cosopt] 1 drop BOTH EYES BID 03/06/21 [History] Ergocalciferol [Vitamin D2 (1250 Mcg = 36820 Iu)] 50,000 unit PO DIRECTED 03/06/21 [History] Latanoprost Ophth [Xalatan 0.005%] 1 drops BOTH EYES HS 03/06/21 [History] Rosuvastatin [Crestor] 10 mg PO HS 03/06/21 [History] Ubidecarenone [Coenzyme Q10] 200 mg PO DAILY 05/29/21 [History] amLODIPine [Norvasc] 5 mg PO DAILY 05/29/21 [History] Cefuroxime [Ceftin] 250 mg PO BID 14 Days #28 tab 06/02/21 [Rx] Patient Condition at Discharge: Good Plan - Discharge Summary Discharge Rx Participant: Yes New Discharge Prescriptions: New Cefuroxime [Ceftin] 250 mg PO BID 14 Days #28 tab Continue Rosuvastatin [Crestor] 10 mg PO HS Ergocalciferol [Vitamin D2 (1250 Mcg = 61571 Iu)] 50,000 unit PO DIRECTED Latanoprost Ophth [Xalatan 0.005%] 1 drops BOTH EYES HS Dorzolamide-Timol 2.23%/0.68% [Cosopt] 1 drop BOTH EYES BID Ubidecarenone [Coenzyme Q10] 200 mg PO DAILY amLODIPine [Norvasc] 5 mg PO DAILY Discontinued Potassium Chloride ER [K-Dur 20] 20 meq PO DAILY sitaGLIPtin PHOS/metFORMIN HCL [Janumet 50-500 mg Tablet] 1 tab PO BID lisinopriL [Zestril] 20 mg PO BID Calcium Carbonate [Calcium] 1,200 mg PO Q48H Cephalexin [Keflex] 500 mg PO Q6HR #40 cap Discharge Medication List Dorzolamide-Timol 2.23%/0.68% [Cosopt] 1 drop BOTH EYES BID 03/06/21 [History] Ergocalciferol [Vitamin D2 (1250 Mcg = 58453 Iu)] 50,000 unit PO DIRECTED 03/06/21 [History] Latanoprost Ophth [Xalatan 0.005%] 1 drops BOTH EYES HS 03/06/21 [History] Rosuvastatin [Crestor] 10 mg PO HS 03/06/21 [History] Ubidecarenone [Coenzyme Q10] 200 mg PO DAILY 05/29/21 [History] amLODIPine [Norvasc] 5 mg PO DAILY 05/29/21 [History] Cefuroxime [Ceftin] 250 mg PO BID 14 Days #28 tab 06/02/21 [Rx] Follow up Appointment(s)/Referral(s): Kelby Ervin MD [REFERRING] - 2 Weeks Wally Alcantara MD [STAFF PHYSICIAN] - 2 Weeks Hans Redmond MD [Primary Care Provider] - 1-2 days Ambulatory/Diagnostic Orders: Basic Metabolic Panel [LAB.AMB] Location: None Selected Complete Blood Count w/diff [LAB.AMB] Location: None Selected Patient Instructions/Handouts: Ureteral Stent Placement (DC) Discharge Disposition: HOME SELF-CARE
== END 2021-06-02 15:00 | disposition home or self-care (01) | DRG 853 ==
LOC: EC 13:45 → 4SSUR 06-01 01:41
PROVIDERS: ADMIT Family Medicine; ATTEND Family Medicine
PROC: 0T768DZ Dilation of Right Ureter with Intraluminal Device, Via Natural or Artificial Opening Endoscopic (ICD-10-PCS; principal; 2021-06-01 14:00)
PROC: BT1F1ZZ Fluoroscopy of Left Kidney, Ureter and Bladder using Low Osmolar Contrast (ICD-10-PCS; principal; 2021-06-01 14:00)
DX: A41.9 Sepsis, unspecified organism (principal); N17.0 Acute kidney failure with tubular necrosis; N13.6 Pyonephrosis; N20.2 Calculus of kidney with calculus of ureter; E21.3 Hyperparathyroidism, unspecified; E11.9 Type 2 diabetes mellitus without complications; T38.3X5A Adverse effect of insulin and oral hypoglycemic [antidiabetic] drugs, initial encounter; E78.5 Hyperlipidemia, unspecified; I10 Essential (primary) hypertension; T39.395A Adverse effect of other nonsteroidal anti-inflammatory drugs [NSAID], initial encounter; Z79.899 Other long term (current) drug therapy; Z90.49 Acquired absence of other specified parts of digestive tract; Z98.890 Other specified postprocedural states; Z20.822 Contact with and (suspected) exposure to COVID-19
CPT/HCPCS: 36415; 74176; 74420; 80048; 80053; 81001; 82150; 82306; 82550; 82652; 83605; 83690; 83970; 85025; 85610; 85730; 87040; 87086; 87635; 99285

== ENCOUNTER → 2021-06-17 | Outpatient (CLI) | payer MEDICARE ==
[2021-06-17 15:03] LABS: Basophils % (A) 1 %; Eosinophils # (A) 0.1 k/uL (0-0.7); Eosinophils % (A) 2 %; HCT 32.5 % (34.0-46.0); Lymphocytes # (A) 1.3 k/uL (1.0-4.8); Lymphocytes % (A) 16 %; MCH 28.4 pg (25.0-35.0); MCHC 32.3 g/dL (31.0-37.0); MCV 87.7 fL (80.0-100.0); Mean Platelet Volume 7.1; Monocytes # (A) 0.4 k/uL (0-1.0); Monocytes % (A) 5 %; Neutrophils # (A) 5.9 k/uL (1.3-7.7); Neutrophils % (A) 75 %; Platelet Count 347 k/uL (150-450); RDW 12.7 % (11.5-15.5); WBC 7.9 k/uL (3.8-10.6)
[2021-06-17 15:10] LABS: HGB 10.5 gm/dL (11.4-16.0)
[2021-06-17 15:11] LABS: Calcium 9.4 mg/dL (8.4-10.2); Potassium 3.3 mmol/L (3.5-5.1)
[2021-06-17 15:24] LABS: Appearance,Urine Clear (Clear); Bilirubin,Urine Negative (Negative); Blood,Urine Moderate (Negative); Color,Urine Yellow; Glucose,Urine (UA) Negative (Negative); Ketones,Urine Negative (Negative); Leukocyte Esterase,Urine Large (Negative); Mucus,Urine Occasional /hpf; Nitrite,Urine Negative (Negative); Protein,Urine 1+ (Negative); RBC,Urine 19 /hpf (0-5); Specific Gravity,Urine 1.009 (1.001-1.035); Squamous Epithelial Cell,Urine 1 /hpf (0-4); Urobilinogen,Urine <2.0 mg/dL (<2.0); WBC,Urine 25 /hpf (0-5)
== END | disposition home or self-care (01) ==
LOC: LABPAT 13:38
PROVIDERS: ATTEND Urology
DX: Z01.812 Encounter for preprocedural laboratory examination (principal); N20.1 Calculus of ureter
CPT/HCPCS: 80048; 81001; 85025; 87086

== ENCOUNTER 2021-06-24 05:55 | Day surgery (SDC) | payer MEDICARE ==
[2021-06-19 12:28] VITALS: BMI 29.9
--- NOTE | 2021-06-23 18:25 | P.HPIHPCON ---
History of Present Illness This is a 65 yo female with hx of 4mm right sided ureteral stone, she underwent right sided stent placement on 05/31 due to CRICKET and Sepsis secondary to the stone. she presents today for right sided ureteroscopy with holmium laser and stent removal. risk which include but not limited to bleeding, infection and injury to the ureter were discussed with her Consent for Procedure: I have explained the operation/procedure to the patient, including the risks, benefits, side effects, alternative therapies (including not receiving the proposed treatment or service), the likelihood of the patient achieving his/her goals, and potential recuperation problems for the procedure/sedation/analgesia, as well as any blood products, if indicated. I also explained to the patient the risks, benefits and side effects of the alternatives, as well as the risks related to not receiving the proposed procedure, care, treatment, or services. Past Medical History Past Medical History: Diabetes Mellitus, Eye Disorder, Hyperlipidemia, Hypertension, Thyroid Disorder Additional Past Medical History / Comment(s): Ocular HTN. Parathyroid gland prob. Hx Kidney stones, recent stone & UTI. History of Any Multi-Drug Resistant Organisms: None Reported Past Surgical History: Cholecystectomy Additional Past Surgical History / Comment(s): colonoscopy. lysis of adhesions. removal ovarian cyst. Cystoscopy w/ Rt ureteral stent, pyelogram 06/01/21. Past Anesthesia/Blood Transfusion Reactions: Motion Sickness, Postoperative Nausea & Vomiting (PONV) Smoking Status: Never smoker - Past Family History Mother Family Medical History: Cancer Additional Family Medical History / Comment(s): bladder Medications and Allergies Home Medications Medication Instructions Recorded Confirmed Type Dorzolamide-Timol 2.23%/0.68% 1 drop BOTH EYES BID 03/06/21 06/19/21 History [Cosopt] Ergocalciferol [Vitamin D2 (1250 50,000 unit PO Q10D 03/06/21 06/19/21 History Mcg = 06393 Iu)] Latanoprost Ophth [Xalatan 0.005%] 1 drops BOTH EYES HS 03/06/21 06/19/21 History Rosuvastatin [Crestor] 10 mg PO HS 03/06/21 06/19/21 History amLODIPine [Norvasc] 5 mg PO DAILY 05/29/21 06/19/21 History Acetaminophen [Tylenol Extra 500 mg PO DIRECTED PRN 06/19/21 06/19/21 History Strength] sitaGLIPtin PHOS/metFORMIN HCL 1 each PO BID 06/19/21 06/19/21 History [Janumet 50-500 mg Tablet] Allergies Allergy/AdvReac Type Severity Reaction Status Date / Time No Known Allergies Allergy Verified 06/19/21 12:06 Surgical - Exam - General no distress - Respiratory normal expansion, normal respiratory effort - Psychiatric oriented to time, oriented to person, oriented to place Assessment and Plan Assessment: OR for right sided ureteroscopy with holmium laser lithotripsy stone basketting and stent removal
[2021-06-24] MEDS ORDERED: MIDAZOLAM 2 MG/2 ML VIAL IV PRN (06:50)
[2021-06-24] MEDS ORDERED: HYDROmorphone 0.5 MG/0.5 ML SYRINGE IVP PRN (06:50)
[2021-06-24] MEDS ORDERED: LACTATED RINGERS 1,000 ML IV SCH (06:50)
[2021-06-24] MEDS ORDERED: ONDANSETRON 4 MG/2 ML VIAL IVP ONE (06:50)
[2021-06-24] MEDS ORDERED: DEXAMETHASONE SOD PHOSPHATE 4 MG/ML 1 ML VIAL IV ONE (06:50)
[2021-06-24] MEDS ORDERED: LIDOCAINE 1% (10MG/ML) FOR IV START INTRADERMA PRN (06:50)
[2021-06-24 07:05] LABS: Glucose,Whole Blood 103 mg/dL (75-99)
--- NOTE | 2021-06-24 07:33 | XR ---
EXAMINATION TYPE: XR KUB DATE OF EXAM: 06/24/2021 COMPARISON: NONE HISTORY: Preop for kidney stones TECHNIQUE: One view abdominal series FINDINGS: Right-sided ureteral stent seen with arthropathy of the hip joints. Nonspecific bowel gas pattern. No definite suspicious calcifications. Surgical clips in the gallbladder fossa. IMPRESSION: 1. Nonspecific abdomen. No definite suspicious calcifications seen.
[2021-06-24] MEDS ORDERED: LIDOCAINE 1% INJ 10MG/ML (20 ML MDV) ONE (07:51)
[2021-06-24] MEDS ORDERED: PROPOFOL 10 MG/ML 20 ML VIAL IV ONE (07:51)
[2021-06-24] MEDS ORDERED: MIDAZOLAM 2 MG/2 ML VIAL ONE (07:51)
[2021-06-24] MEDS ORDERED: fentaNYL (PF) 50 MCG/ML 2 ML AMP ONE (07:51)
[2021-06-24] MEDS ORDERED: POTASSIUM CHLORIDE 20 MEQ/100 ML BAG IVPB ONE (07:51)
[2021-06-24 08:38] VITALS: TEMP 97.2
--- NOTE | 2021-06-24 08:47 | P.OP ---
Date of Procedure: 06/24/21 Preoperative Diagnosis: Right ureteral calculi Postoperative Diagnosis: Same Procedure(s) Performed: Cystoscopy, right ureteroscopy and stent removal Implants: None Anesthesia: GETA Estimated Blood Loss (ml): 0 Pathology: none sent Condition: stable Disposition: PACU Indications for Procedure: This is a 65 yo female with hx of 4mm right sided ureteral stone, she underwent right sided stent placement on 05/31 due to CRICKET and Sepsis secondary to the stone. she presents today for right sided ureteroscopy with holmium laser and stent removal. risk which include but not limited to bleeding, infection and injury to the ureter were discussed with her Operative Findings: No ureteral stones were visualized Description of Procedure: Patient was brought to the operating room, general anesthesia was induced. She was prepped and draped in sterile fashion and placed in dorsal lithotomy position. Cystoscopy fitted with a 21-L[place]ian sheath was inserted per urethra, cystoscopy was performed showed no abnormality within the bladder. Attention was then carried to the right ureteral orifice, the stent was grasped and removed. Next a semirigid ureteroscope was inserted up the right ureteral orifice and advanced all the way up to the UPJ, no stone was visualized along the course of the ureter. Pullback ureteroscopy was performed which showed no injury to the ureter or any ureteral stones. As the ureteroscope was withdrawn a sensor wire was advanced through. Next a flexible ureteroscope was passed over the wire and into the kidney, renoscopy was performed which showed no stones within the kidney. Pullback ureteroscopy was performed which showed no ureteral stones or any injury to the ureter. The bladder was emptied at the end of the case. Patient tolerated the procedure well was taken to recovery
--- NOTE | 2021-06-24 09:17 | FL ---
EXAMINATION TYPE: FL guidance operating room DATE OF EXAM: 06/24/2021 CLINICAL HISTORY: Right-sided kidney stone TECHNIQUE: Fluoroscopy. COMPARISON: Abdominal x-ray earlier today FINDINGS: Fluoroscopic guidance was provided during right ureter kidney stone treatment procedure pe rformed by Dr. Cleaning. A total of 2 seconds of fluoroscopic time was utilized during the procedure a nd 1 spot images was acquired. Single image acquired shows advancement of guidewire towards right col lecting system after stent retrieval. IMPRESSION: As Above.
[2021-06-24 10:03] VITALS: BP 122/54; PULSE 70; RESP 15
== END 2021-06-24 10:10 | disposition home or self-care (01) ==
LOC: OR 05:55
PROVIDERS: ATTEND Urology
DX: N20.1 Calculus of ureter (principal); Z46.6 Encounter for fitting and adjustment of urinary device; E11.9 Type 2 diabetes mellitus without complications; E78.5 Hyperlipidemia, unspecified; I10 Essential (primary) hypertension; E07.9 Disorder of thyroid, unspecified; H40.9 Unspecified glaucoma; Z87.442 Personal history of urinary calculi; Z90.49 Acquired absence of other specified parts of digestive tract; Z79.899 Other long term (current) drug therapy; Z98.890 Other specified postprocedural states; Z80.52 Family history of malignant neoplasm of bladder
CPT/HCPCS: 84132; 74018; 52310; C1769; J2250; J1100; J3480; J0690; J2405; J2001; J3010; J2704

== ENCOUNTER → 2022-03-25 | Outpatient (CLI) | payer MEDICARE ==
--- NOTE | 2022-03-26 08:36 | MM ---
Reason for Exam: Screening (asymptomatic). Last mammogram was performed 1 year(s) and 1 month(s) ago. Patient History: Menarche at age 12. First Full-Term at age 27. Postmenopausal. Patient used Hormonal Contraceptives for 5 years. Risk Values: Rashmi 5 year model risk: 1.9%. NCI Lifetime model risk: 6.4%. Prior Study Comparison: 10/12/2018 Bilateral Screening Mammogram, [facility]. 01/09/2020 Bilateral Screening Mammogram, [facility]. 03/12/2021 Bilateral Screening Mammogram, [facility]. Tissue Density: There are scattered fibroglandular densities. Findings: Analyzed By CAD. There is no suspicious group of microcalcifications or new suspicious mass in either breast. Stable subcentimeter chronic nodularity bilaterally most likely related to tiny lymph node. Overall Assessment: Benign, BI-RAD 2 Management: Screening Mammogram of both breasts in 1 year. A clinical breast exam by your physician is recommended on an annual basis and results should be correlated with mammographic findings. Electronically signed and approved by: Hans Sharp M.D. Radiologis
== END | disposition home or self-care (01) ==
LOC: RADMAMWWP 07:29
PROVIDERS: ATTEND Internal Medicine Geriatric Medicine
DX: Z12.31 Encounter for screening mammogram for malignant neoplasm of breast (principal); Z78.0 Asymptomatic menopausal state
CPT/HCPCS: 77063; 77067

== ENCOUNTER 2022-04-17 20:15 | Emergency (ER) | payer MEDICARE ==
[2022-04-17 20:34] VITALS: RESP 16
[2022-04-17 20:52] LABS: Appearance,Urine Clear (Clear); Bilirubin,Urine Negative (Negative); Blood,Urine Negative (Negative); Color,Urine Colorless; Glucose,Urine (UA) Negative (Negative); Ketones,Urine Negative (Negative); Leukocyte Esterase,Urine Negative (Negative); Nitrite,Urine Negative (Negative); PH, Urine 6.5 (5.0-8.0); Protein,Urine Negative (Negative); Specific Gravity,Urine 1.003 (1.001-1.035); Urobilinogen,Urine <2.0 mg/dL (<2.0)
[2022-04-17 22:23] LABS: Basophils % (A) 1 %; Eosinophils # (A) 0.2 k/uL (0-0.7); Eosinophils % (A) 3 %; HGB 12.9 gm/dL (11.4-16.0); Lymphocytes # (A) 2.6 k/uL (1.0-4.8); Lymphocytes % (A) 33 %; MCH 28.4 pg (25.0-35.0); MCV 86.2 fL (80.0-100.0); Mean Platelet Volume 8.2; Monocytes # (A) 0.5 k/uL (0-1.0); Monocytes % (A) 7 %; Neutrophils # (A) 4.4 k/uL (1.3-7.7); Neutrophils % (A) 55 %; Platelet Count 265 k/uL (150-450); RBC 4.53 m/uL (3.80-5.40); RDW 13.4 % (11.5-15.5); WBC 7.9 k/uL (3.8-10.6)
[2022-04-17 22:35] LABS: Calcium 9.4 mg/dL (8.4-10.2); Potassium 4.2 mmol/L (3.5-5.1); Total Bilirubin 0.5 mg/dL (0.2-1.3); Total Protein 7.6 g/dL (6.3-8.2)
--- NOTE | 2022-04-17 23:18 | ED ---
Abdominal Pain HPI - General Chief Complaint: Abdominal Pain Stated Complaint: Right sided pain Time Seen by Provider: 04/17/22 22:03 Source: patient Mode of arrival: ambulatory Limitations: no limitations - History of Present Illness Initial Comments: This patient is a 66-year-old woman who presents with complaint of right flank pain that is been intermittent going back a number of days now. She states that tonight's episode was much more severe and was located more in the right upper quadrant. She states that these symptoms do remind her of previous episode of kidney stone. She states that at that time there was an infection associated, she had to have a stent placed by the urologist. Patient has not noted any worsening or relieving factors. It does not seem to be related to food. She has previously had cholecystectomy. She has not noted fever or chills. No change in urination or bowel movements. MD Complaint: flank pain -: days(s) Location: R flank Radiation: RUQ Severity: severe Quality: aching Consistency: intermittent Improves With: nothing Worsens With: nothing Associated Symptoms: nausea - Related Data Home Medications Medication Instructions Recorded Confirmed Dorzolamide-Timol 2.23%/0.68% 1 drop BOTH EYES BID 03/06/21 06/24/21 [Cosopt] Ergocalciferol [Vitamin D2 (1250 50,000 unit PO Q10D 03/06/21 06/24/21 Mcg = 29195 Iu)] Latanoprost Ophth [Xalatan 0.005%] 1 drops BOTH EYES HS 03/06/21 06/24/21 Rosuvastatin [Crestor] 10 mg PO HS 03/06/21 06/24/21 amLODIPine [Norvasc] 5 mg PO DAILY 05/29/21 06/24/21 Acetaminophen [Tylenol Extra 500 mg PO DIRECTED PRN 06/19/21 06/24/21 Strength] sitaGLIPtin PHOS/metFORMIN HCL 1 each PO BID 06/19/21 06/24/21 [Janumet 50-500 mg Tablet] Previous Rx's Medication Instructions Recorded Cephalexin [Keflex] 500 mg PO Q8HR #15 cap 06/24/21 Ketorolac [Toradol] 10 mg PO Q6HR PRN #10 tab 06/24/21 Allergies Allergy/AdvReac Type Severity Reaction Status Date / Time No Known Allergies Allergy Verified 04/17/22 20:30 Review of Systems ROS Statement: Those systems with pertinent positive or pertinent negative responses have been documented in the HPI. ROS Other: All systems not noted in ROS Statement are negative. Constitutional: Denies: fever, chills, weakness Respiratory: Denies: cough, dyspnea Cardiovascular: Denies: chest pain, palpitations, edema, syncope Gastrointestinal: Reports: abdominal pain, nausea. Denies: vomiting, diarrhea, constipation, melena, hematochezia Genitourinary: Denies: dysuria, frequency, hematuria Musculoskeletal: Denies: back pain Skin: Denies: rash Neurological: Denies: headache, weakness, numbness Past Medical History Past Medical History: Diabetes Mellitus, Hyperlipidemia, Hypertension, Thyroid Disorder Additional Past Medical History / Comment(s): optic HTN, kidney stone History of Any Multi-Drug Resistant Organisms: None Reported Past Surgical History: Cholecystectomy Additional Past Surgical History / Comment(s): colonoscopy. lysis of adhesions. removal ovarian cyst Past Anesthesia/Blood Transfusion Reactions: Motion Sickness, Postoperative Nausea & Vomiting (PONV) Past Psychological History: No Psychological Hx Reported Smoking Status: Never smoker Past Alcohol Use History: None Reported Past Drug Use History: None Reported - Past Family History Mother Family Medical History: Cancer Additional Family Medical History / Comment(s): bladder General Exam Limitations: no limitations General appearance: alert, in no apparent distress Head exam: Present: atraumatic, normocephalic Eye exam: Present: normal appearance. Absent: scleral icterus, conjunctival injection Neck exam: Present: normal inspection Respiratory exam: Present: normal lung sounds bilaterally. Absent: respiratory distress, wheezes, rales, rhonchi, stridor Cardiovascular Exam: Present: regular rate, normal rhythm, normal heart sounds. Absent: systolic murmur, diastolic murmur, rubs, gallop GI/Abdominal exam: Present: soft. Absent: distended, tenderness, guarding, rebound, rigid, mass, pulsatile mass, hernia Extremities exam: Present: normal inspection, normal capillary refill. Absent: pedal edema, calf tenderness Back exam: Present: normal inspection. Absent: CVA tenderness (R), CVA tenderness (L) Neurological exam: Present: alert Skin exam: Present: warm, dry, intact, normal color. Absent: rash Course Vital Signs 04/17/22 20:30 Temperature 98 F Pulse Rate 101 H Respiratory 16 Rate Blood Pressure 165/107 O2 Sat by Pulse 98 Oximetry Medical Decision Making - Lab Data Result diagrams: 04/17/22 22:11 04/17/22 22:11 Lab Results 04/17/22 04/17/22 04/17/22 Range/Units 20:36 22:11 22:11 WBC 7.9 (3.8-10.6) k/uL RBC 4.53 (3.80-5.40) m/uL Hgb 12.9 (11.4-16.0) gm/dL Hct 39.0 (34.0-46.0) % MCV 86.2 (80.0-100.0) fL MCH 28.4 (25.0-35.0) pg MCHC 33.0 (31.0-37.0) g/dL RDW 13.4 (11.5-15.5) % Plt Count 265 (150-450) k/uL MPV 8.2 Neutrophils % 55 % Lymphocytes % 33 % Monocytes % 7 % Eosinophils % 3 % Basophils % 1 % Neutrophils # 4.4 (1.3-7.7) k/uL Lymphocytes # 2.6 (1.0-4.8) k/uL Monocytes # 0.5 (0-1.0) k/uL Eosinophils # 0.2 (0-0.7) k/uL Basophils # 0.0 (0-0.2) k/uL Sodium 140 (137-145) mmol/L Potassium 4.2 (3.5-5.1) mmol/L Chloride 103 (98-107) mmol/L Carbon Dioxide 24 (22-30) mmol/L Anion Gap 13 mmol/L BUN 15 (7-17) mg/dL Creatinine 1.00 (0.52-1.04) mg/dL Est GFR (CKD-EPI)AfAm 68 (>60 ml/min/1.73 sqM) Est GFR (CKD-EPI)NonAf 59 (>60 ml/min/1.73 sqM) Glucose 92 (74-99) mg/dL Calcium 9.4 (8.4-10.2) mg/dL Total Bilirubin 0.5 (0.2-1.3) mg/dL AST 19 (14-36) U/L ALT 19 (4-34) U/L Alkaline Phosphatase 63 (38-126) U/L Total Protein 7.6 (6.3-8.2) g/dL Albumin 5.0 (3.5-5.0) g/dL Amylase 116 H (30-110) U/L Lipase 589 H (23-300) U/L Urine Color Colorless Urine Appearance Clear (Clear) Urine pH 6.5 (5.0-8.0) Ur Specific [place] 1.003 (1.001-1.035) Urine Protein Negative (Negative) Urine Glucose (UA) Negative (Negative) Urine Ketones Negative (Negative) Urine Blood Negative (Negative) Urine Nitrite Negative (Negative) Urine Bilirubin Negative (Negative) Urine Urobilinogen <2.0 (<2.0) mg/dL Ur Leukocyte Esterase Negative (Negative) Disposition Clinical Impression: Abdominal pain Disposition: HOME SELF-CARE Condition: Good Instructions (If sedation given, give patient instructions): Abdominal Pain (ED), Pancreatitis (ED) Is patient prescribed a controlled substance at d/c from ED?: No Referrals: Hans Redmond MD [Primary Care Provider] - 1-2 days
--- NOTE | 2022-04-17 23:28 | CT ---
EXAMINATION TYPE: CT abdomen pelvis wo con DATE OF EXAM: 04/17/2022 COMPARISON: 05/31/2021 HISTORY: right flank pain CT DLP: 700.8 mGycm Automated exposure control for dose reduction was used. Images obtained from the diaphragm to the floor the pelvis without contrast. The lung bases are clear of consolidation. There is mild subsegmental atelectasis left lung base. No pleural effusion. Liver spleen stomach pancreas appear intact. There are clips from cholecystectomy. The bile duct are not dilated. There is no adrenal mass. Kidneys have normal size. No hydronephrosis. Ureters are not dilated. No re troperitoneal adenopathy. There is 2 cm cyst inferior right lobe of the liver. The urinary bladder is almost empty. Uterus is anteverted and appears normal. No pelvic mass. No inguinal hernia. No free f luid in the pelvis. There are multiple sigmoid diverticula. No diverticulitis. Appendix is posterior and appears normal. The lumbar vertebrae have normal alignment. No compression fracture. Posterior elements are intact. T he bony pelvis is intact. Hip joints are intact. There is a 1 mm calculus interpolar left kidney. IMPRESSION: Minimal subsegmental atelectasis left lung base similar to old exam. There is clearing of the right p leural effusion compared to old exams. No acute abnormality in the abdomen pelvis. There is clearing of the right-sided hydronephrosis compared to old exam. Nonobstructing left renal calculus without ch master.
[2022-04-18 00:22] VITALS: BP 125/68; PULSE 81; TEMP 98.2
== END 2022-04-18 00:21 | disposition home or self-care (01) ==
LOC: EC 20:15
DX: R10.11 Right upper quadrant pain (principal); E11.9 Type 2 diabetes mellitus without complications; E78.5 Hyperlipidemia, unspecified; I10 Essential (primary) hypertension; E07.9 Disorder of thyroid, unspecified; Z79.899 Other long term (current) drug therapy
CPT/HCPCS: 36415; 74176; 80053; 81003; 82150; 83690; 85025; 99284

== ENCOUNTER → 2022-06-25 | Outpatient (CLI) | payer MEDICARE ==
--- NOTE | 2022-06-25 12:27 | XR ---
EXAMINATION TYPE: XR KUB DATE OF EXAM: 06/25/2022 12:21 PM INDICATION: Patient age:Female; 66 years old; Reason for study: N20.0; COMPARISON: 06/24/2021 TECHNIQUE: One radiographic view of the abdomen was obtained. FINDINGS: Right ureteral stent is no longer visualized. The bowel gas pattern is nonspecific without dilated loops of small or large bowel. There is no evidence for organomegaly or pneumoperitoneum. Th e osseous structures are intact. No abnormal calcifications are present. Fecal material and gas are demonstrated throughout the colon and rectum. Right upper quadrant cholecystectomy clips. Multi leve l disc degeneration changes throughout the spine. IMPRESSION: Right ureteral stent is no longer visualized. Nonspecific bowel gas pattern without radiographic evidence for acute process.
== END | disposition home or self-care (01) ==
LOC: RADXRMAIN 12:12
PROVIDERS: ATTEND Urology
DX: N20.0 Calculus of kidney (principal)
CPT/HCPCS: 74018

== ENCOUNTER → 2023-04-24 | Outpatient (CLI) | payer MEDICARE ==
--- NOTE | 2023-04-27 14:44 | MM ---
Reason for Exam: Screening (asymptomatic). Last mammogram was performed 1 year(s) and 1 month(s) ago. Patient History: Menarche at age 12. First Full-Term at age 27. Postmenopausal. Patient used Hormonal Contraceptives for 5 years. Risk Values: Rashmi 5 year model risk: 1.9%. NCI Lifetime model risk: 6.2%. Prior Study Comparison: 01/09/2020 Bilateral Screening Mammogram, [facility]. 03/12/2021 Bilateral Screening Mammogram, [facility]. 03/25/2022 Bilateral MG 3D screening mammo w/cad, [facility]. Tissue Density: The breast tissue is heterogeneously dense. This may lower the sensitivity of mammography. Findings: Analyzed By CAD. There is no suspicious group of microcalcifications or new suspicious mass in either breast. Overall Assessment: Benign, BI-RAD 2 Management: Screening Mammogram of both breasts in 1 year. . Patient should continue monthly self-breast exams. A clinical breast exam by your physician is recommended on an annual basis. This exam should not preclude additional follow-up of suspicious palpable abnormalities. Note on Rashmi scores and lifetime risk: 1. A Rashmi score greater than 3% is considered moderate risk. If this is the case, consider specialist referral to assess eligibility for a risk reducing agent. 2. If overall lifetime risk for the development of breast cancer is 20% or higher, the patient may qualify for future screening with alternating mammogram and breast MRI. Electronically signed and approved by: Ludin Hernandez M.D. Radiologis
== END | disposition home or self-care (01) ==
LOC: RADMAMWWP 16:31
PROVIDERS: ATTEND Internal Medicine Geriatric Medicine
DX: Z12.31 Encounter for screening mammogram for malignant neoplasm of breast (principal); Z78.0 Asymptomatic menopausal state
CPT/HCPCS: 77063; 77067

== ENCOUNTER → 2023-05-29 | Outpatient (CLI) | payer MEDICARE ==
[2023-05-29 07:50] LABS: African American GFR (CKD) 70 (>60 ml/min/1.73 sqM); Blood Urea Nitrogen 20 mg/dL (7-17); Non-African American GFR(CKD) 61 (>60 ml/min/1.73 sqM)
--- NOTE | 2023-05-29 11:48 | CT ---
EXAMINATION TYPE: CT iac w con DATE OF EXAM: 05/29/2023 COMPARISON: None HISTORY: tinnitus CT DLP: 150 mGycm Automated exposure control for dose reduction was used. CONTRAST: CT scan of the IACs is performed with IV Contrast, patient injected with 100 mL of Isovue 300. FINDINGS: The external auditory canals are patent bilaterally. Mastoid air cells show no evidence of abnormal opacification bilaterally. The middle ear ossicles are symmetric and unremarkable. There is no evidence of suspicious surrounding soft tissue density to suggest cholesteatoma. The scutum is preserved bilaterally. The cochlea and the semicircular canals are symmetric and unremarkable. Ves tibular aqueduct and internal carotid canal appear unremarkable. Temporomandibular joints are mainta ined bilaterally. Intraparotid lymph nodes are noted. A prominent optic nerves. IMPRESSION: 1. No significant abnormality seen to account for patient's symptoms. 2. Prominent optic nerve should be correlated clinically to exclude papilledema or increased intracr anial pressure.
== END | disposition home or self-care (01) ==
LOC: RADCTMAIN 07:08
PROVIDERS: ATTEND Otolaryngology
DX: Z13.9 Encounter for screening, unspecified (principal); H93.A3 Pulsatile tinnitus, bilateral
CPT/HCPCS: 82565; 84520; 70481; 36415; Q9967

== ENCOUNTER → 2023-08-08 | Outpatient (CLI) | payer MEDICARE ==
[2023-08-08 14:22] LABS: Basophils # (A) 0.02 X 10*3/uL (0.00-0.10); Basophils % (A) 0.3 %; Eosinophils # (A) 0.18 X 10*3/uL (0.04-0.35); Eosinophils % (A) 2.9 %; HCT 39.4 % (37.2-46.3); HGB 12.5 g/dL (12.0-15.0); Lymphocytes # (A) 1.83 X 10*3/uL (0.90-5.00); Lymphocytes % (A) 29.1 %; MCH 27.5 pg (27.0-32.0); MCHC 31.7 g/dL (32.0-37.0); MCV 86.8 FL (80.0-97.0); Mean Platelet Volume 10.9 FL (9.5-12.2); Monocytes # (A) 0.41 X 10*3/uL (0.20-1.00); Monocytes % (A) 6.5 %; NRBC Per 100 WBC 0 X 10*3/uL (0.00-0.01); Neutrophils # (A) 3.83 X 10*3/uL (1.80-7.70); Platelet Count 287 X 10*3/uL (140-440); RBC 4.54 X 10*6/uL (4.10-5.20); RDW 13.8 % (11.5-14.5); WBC 6.28 X 10*3/uL (4.50-10.00)
[2023-08-08 14:25] LABS: ALT 22 U/L (8-44); AST 21 U/L (13-35); Albumin 4.7 g/dL (3.8-4.9); Albumin/Globulin Ratio 1.81 Ratio (1.60-3.17); Alkaline Phosphatase 69 U/L (41-126); Blood Urea Nitrogen 11.9 mg/dL (9.0-27.0); Calcium 10.1 mg/dL (8.7-10.3); Carbon Dioxide 23.4 mmol/L (21.6-31.8); Chloride 103 mmol/L (96-109); Chol/HDL Ratio 2.88 Ratio; Globulin 2.6 g/dL (1.6-3.3); Glucose 108 mg/dL (70-110); LDL Cholesterol,Calculated 58.2 mg/dL (0.0-131.0); Potassium 4.6 mmol/L (3.5-5.5); Sodium 140 mmol/L (135-145); T4, Free (Free Thyroxine) 1.57 ng/dL (0.80-1.80); Total Bilirubin 0.5 mg/dL (0.3-1.2); Total Protein 7.3 g/dL (6.2-8.2)
== END | disposition home or self-care (01) ==
LOC: LABWHC1 08:18
PROVIDERS: ATTEND Internal Medicine Geriatric Medicine
DX: E11.9 Type 2 diabetes mellitus without complications (principal); E07.9 Disorder of thyroid, unspecified; E78.2 Mixed hyperlipidemia
CPT/HCPCS: 36415; 80053; 80061; 83036; 84439; 84443; 85025

== ENCOUNTER → 2023-12-08 | Outpatient (CLI) | payer MEDICARE ==
[2023-12-08 15:20] LABS: Basophils # (A) 0.03 X 10*3/uL (0.00-0.10); Basophils % (A) 0.5 %; Eosinophils # (A) 0.16 X 10*3/uL (0.04-0.35); Eosinophils % (A) 2.7 %; HCT 40.4 % (37.2-46.3); HGB 12.2 g/dL (12.0-15.0); Lymphocytes # (A) 1.71 X 10*3/uL (0.90-5.00); Lymphocytes % (A) 29.2 %; MCHC 30.2 g/dL (32.0-37.0); MCV 89.4 FL (80.0-97.0); Monocytes % (A) 6.8 %; NRBC Per 100 WBC 0 X 10*3/uL (0.00-0.01); Neutrophils # (A) 3.54 X 10*3/uL (1.80-7.70); Neutrophils % (A) 60.6 %; Platelet Count 274 X 10*3/uL (140-440); RBC 4.52 X 10*6/uL (4.10-5.20); RDW 14.4 % (11.5-14.5); WBC 5.85 X 10*3/uL (4.50-10.00)
[2023-12-08 15:38] LABS: BUN/Creat Ratio 14.09 Ratio (12.00-20.00); Blood Urea Nitrogen 15.5 mg/dL (9.0-27.0); Chloride 105 mmol/L (96-109); Chol/HDL Ratio 2.89 Ratio; Glucose 111 mg/dL (70-110); LDL Cholesterol,Calculated 60.4 mg/dL (0.0-131.0); Potassium 4.8 mmol/L (3.5-5.5); Sodium 143 mmol/L (135-145)
[2023-12-08 15:39] LABS: ALT 20 U/L (8-44); AST 19 U/L (13-35); Albumin 4.6 g/dL (3.8-4.9); Albumin/Globulin Ratio 1.84 Ratio (1.60-3.17); Alkaline Phosphatase 61 U/L (41-126); Calcium 9.9 mg/dL (8.7-10.3); Globulin 2.5 g/dL (1.6-3.3); T4, Free (Free Thyroxine) 1.38 ng/dL (0.80-1.80); Total Bilirubin 0.4 mg/dL (0.3-1.2); Total Protein 7.1 g/dL (6.2-8.2)
== END | disposition home or self-care (01) ==
LOC: LABWHC1 08:00
PROVIDERS: ATTEND Internal Medicine Geriatric Medicine
DX: Z00.00 Encounter for general adult medical examination without abnormal findings (principal); E78.2 Mixed hyperlipidemia; E11.9 Type 2 diabetes mellitus without complications; E21.3 Hyperparathyroidism, unspecified; E07.9 Disorder of thyroid, unspecified
CPT/HCPCS: 36415; 80053; 80061; 83036; 83970; 84439; 84443; 85025

== ENCOUNTER → 2024-04-26 | Outpatient (CLI) | payer MEDICARE ==
[2024-04-26 11:26] LABS: Basophils # (A) 0.03 X 10*3/uL (0.00-0.10); Basophils % (A) 0.4 %; Eosinophils # (A) 0.19 X 10*3/uL (0.04-0.35); Eosinophils % (A) 2.7 %; HCT 37.2 % (37.2-46.3); HGB 11.7 g/dL (12.0-15.0); Lymphocytes # (A) 1.96 X 10*3/uL (0.90-5.00); Lymphocytes % (A) 27.8 %; MCH 28.3 pg (27.0-32.0); MCHC 31.5 g/dL (32.0-37.0); MCV 89.9 FL (80.0-97.0); Mean Platelet Volume 10.8 FL (9.5-12.2); Monocytes # (A) 0.54 X 10*3/uL (0.20-1.00); Monocytes % (A) 7.7 %; NRBC Per 100 WBC 0 X 10*3/uL (0.00-0.01); Neutrophils # (A) 4.31 X 10*3/uL (1.80-7.70); Neutrophils % (A) 61.1 %; Platelet Count 274 X 10*3/uL (140-440); RBC 4.14 X 10*6/uL (4.10-5.20); RDW 14.5 % (11.5-14.5); WBC 7.05 X 10*3/uL (4.50-10.00)
[2024-04-26 11:50] LABS: ALT 18 U/L (8-44); AST 18 U/L (13-35); Albumin 4.6 g/dL (3.8-4.9); Albumin/Globulin Ratio 1.84 Ratio (1.60-3.17); Alkaline Phosphatase 64 U/L (41-126); Blood Urea Nitrogen 18.7 mg/dL (9.0-27.0); Calcium 9.6 mg/dL (8.7-10.3); Carbon Dioxide 25.5 mmol/L (21.6-31.8); Chloride 105 mmol/L (96-109); Chol/HDL Ratio 2.93 Ratio; Globulin 2.5 g/dL (1.6-3.3); Glucose 101 mg/dL (70-110); LDL Cholesterol,Calculated 56.3 mg/dL (0.0-131.0); Sodium 141 mmol/L (135-145); T4, Free (Free Thyroxine) 1.34 ng/dL (0.80-1.80); Total Bilirubin 0.4 mg/dL (0.3-1.2); Total Protein 7.1 g/dL (6.2-8.2)
== END | disposition home or self-care (01) ==
LOC: LABWHC1 07:14
PROVIDERS: ATTEND Internal Medicine Geriatric Medicine
DX: E11.9 Type 2 diabetes mellitus without complications (principal); D50.9 Iron deficiency anemia, unspecified; E78.2 Mixed hyperlipidemia; E07.9 Disorder of thyroid, unspecified
CPT/HCPCS: 36415; 80053; 80061; 82043; 82570; 83036; 84439; 84443; 85025

== ENCOUNTER → 2024-04-26 | Outpatient (CLI) | payer MEDICARE ==
--- NOTE | 2024-04-30 15:25 | MM ---
Reason for Exam: Screening (asymptomatic). Last screening mammogram was performed 12 month(s) ago. Patient History: Menarche at age 12. First Full-Term at age 27. Postmenopausal. Patient used Hormonal Contraceptives for 5 years. Risk Values: Rashmi 5 year model risk: 1.9%. NCI Lifetime model risk: 5.9%. Prior Study Comparison: 03/12/2021 Bilateral Screening Mammogram, [facility]. 03/25/2022 Bilateral MG 3D screening mammo w/cad, [facility]. 04/24/2023 Bilateral MG 3D screening mammo w/cad, [facility]. Tissue Density: There are scattered areas of fibroglandular density. Findings: Analyzed By CAD. The pattern is symmetrical. No significant interval change. No suspicious groups of microcalcifications, spiculated or lobular masses, architectural distortion or other secondary signs of malignancy are mammographically apparent. Overall Assessment: Negative, BI-RAD 1 Management: Screening Mammogram of both breasts in 1 year. A negative mammogram report should not preclude additional follow up of suspicious palpable abnormalities. Patient should continue monthly self breast exam. A clinical breast exam by your physician is recommended on an annual basis and results should be correlated with mammographic findings. Note on Rashmi scores and lifetime risk: 1. A Rashmi score greater than 3% is considered moderate risk. If this is the case, consider specialist referral to assess eligibility for a risk reducing agent. 2. If overall lifetime risk for the development of breast cancer is 20% or higher, the patient may qualify for future screening with alternating mammogram and breast MRI. [facility], , 04/30/2024 3:22 PM. Electronically signed and approved by: Dimitrios Carmen D.O. Radiologis
--- NOTE | 2024-05-01 22:44 | BD ---
EXAMINATION TYPE: Axial Bone Density DATE OF EXAM: 04/26/2024 CLINICAL HISTORY: 68 years old Female. ICD-10 CODE: M81.0 MENOPAUSAL , Additional History: Height: 62.7 Weight: 181 FRAX RISK QUESTIONS: History of Fracture in Adulthood: yes Secondary Osteoporosis: yes 3. Menopause before 45: >45yrs 5. Chronic liver disease: yes, fatty liver RISK FACTORS HISTORY OF: HX OF LEFT FOOT FX, metatarsals, diabetic, MEDICATIONS: janumet, for diabetes, calcium and vit d, bp meds, cholesterol meds EXAM MEASUREMENTS: Bone mineral densitometry was performed using the [employer] System. Bone mineral density as measured about the Lumbar spine is: ----- L1-L4(G/cm2): 1.438 T Score Values are as follows: ----- L1: 1.4 ----- L2: 2.1 ----- L3: 1.8 ----- L4: 3.1 ----- L1-L4: 2.2 Z Score Values are as follows: ----- L1: 2.4 ----- L2: 3.2 ----- L3: 2.9 ----- L4: 4.2 ----- L1-L4: 3.2 Bone mineral density has: Increased 2.7% since study of: 10.12.2017 Bone mineral density about the R hip (g/cm2): 0.932 Bone mineral density about the L hip (g/cm2): 0.921 T Score values are as follows: -----R Neck: -0.7 -----L Neck: -1.0 -----R Total: -0.6 -----L Total: -0.7 Z Score values are as follows: -----R Neck: 0.6 -----L Neck: 0.3 -----R Total: 0.4 -----L Total: 0.3 Bone mineral density has: Decreased -4.7% since study of: 10.12.2017 FRAX%s: The graph provided illustrates a 13.4% chance for a major osteoporotic fx and a 1.2% chance f or the hips probability for fx in 10 years time. IMPRESSION: Normal (Values between +1 and -1 indicate normal bone mass). Consider repeating this study in 5 year s or sooner if there is some new clinical indication. NOTE: T-SCORE=SD OF THE YOUNG ADULT MEAN. [facility], , 05/01/2024 10:41 PM
== END | disposition home or self-care (01) ==
LOC: RADMAMWWP 12:39
PROVIDERS: ATTEND Internal Medicine Geriatric Medicine
DX: Z12.31 Encounter for screening mammogram for malignant neoplasm of breast (principal); R92.323 Mammographic fibroglandular density, bilateral breasts; M81.0 Age-related osteoporosis without current pathological fracture; Z78.0 Asymptomatic menopausal state
CPT/HCPCS: 77063; 77067; 77080

== ENCOUNTER → 2024-09-01 | Outpatient (CLI) | payer MEDICARE ==
[2024-09-01 10:15] LABS: Basophils # (A) 0.03 X 10*3/uL (0.00-0.10); Basophils % (A) 0.5 %; Eosinophils # (A) 0.26 X 10*3/uL (0.04-0.35); HCT 40.4 % (37.2-46.3); HGB 12.9 g/dL (12.0-15.0); Lymphocytes # (A) 2.25 X 10*3/uL (0.90-5.00); Lymphocytes % (A) 34.8 %; MCHC 31.9 g/dL (32.0-37.0); MCV 87.8 FL (80.0-97.0); Mean Platelet Volume 11.1 FL (9.5-12.2); Monocytes # (A) 0.45 X 10*3/uL (0.20-1.00); NRBC Per 100 WBC 0 X 10*3/uL (0.00-0.01); Neutrophils # (A) 3.46 X 10*3/uL (1.80-7.70); Neutrophils % (A) 53.5 %; Platelet Count 267 X 10*3/uL (140-440); WBC 6.46 X 10*3/uL (4.50-10.00)
[2024-09-01 11:15] LABS: ALT 23 U/L (8-44); AST 20 U/L (13-35); Albumin 4.6 g/dL (3.8-4.9); Albumin/Globulin Ratio 1.92 Ratio (1.60-3.17); Alkaline Phosphatase 57 U/L (41-126); Blood Urea Nitrogen 21.5 mg/dL (9.0-27.0); Calcium 10.4 mg/dL (8.7-10.3); Carbon Dioxide 26.1 mmol/L (21.6-31.8); Chloride 104 mmol/L (96-109); Chol/HDL Ratio 2.79 Ratio; Globulin 2.4 g/dL (1.6-3.3); Glucose 108 mg/dL (70-110); LDL Cholesterol,Calculated 48.4 mg/dL (0.0-131.0); Potassium 4.5 mmol/L (3.5-5.5); Sodium 141 mmol/L (135-145); T4, Free (Free Thyroxine) 1.43 ng/dL (0.80-1.80); Total Bilirubin 0.5 mg/dL (0.3-1.2); Uric Acid 5.7 mg/dL (2.9-7.7)
== END | disposition home or self-care (01) ==
LOC: LABWHC1 07:12
PROVIDERS: ATTEND Internal Medicine Geriatric Medicine
DX: E11.9 Type 2 diabetes mellitus without complications (principal); E21.3 Hyperparathyroidism, unspecified; M10.9 Gout, unspecified; E78.2 Mixed hyperlipidemia; E07.9 Disorder of thyroid, unspecified
CPT/HCPCS: 36415; 80053; 80061; 83036; 84439; 84443; 84550; 85025

== ENCOUNTER → 2024-12-08 | Outpatient (CLI) | payer MEDICARE ==
[2024-12-08 10:18] LABS: Basophils # (A) 0.03 X 10*3/uL (0.00-0.10); Basophils % (A) 0.5 %; Eosinophils # (A) 0.32 X 10*3/uL (0.04-0.35); Eosinophils % (A) 5.7 %; HCT 40.1 % (37.2-46.3); HGB 12.7 g/dL (12.0-15.0); Lymphocytes # (A) 1.79 X 10*3/uL (0.90-5.00); Lymphocytes % (A) 31.9 %; MCH 28.3 pg (27.0-32.0); MCHC 31.7 g/dL (32.0-37.0); MCV 89.3 FL (80.0-97.0); Mean Platelet Volume 10.2 FL (9.5-12.2); Monocytes # (A) 0.45 X 10*3/uL (0.20-1.00); NRBC Per 100 WBC 0 X 10*3/uL (0.00-0.01); Neutrophils # (A) 3.02 X 10*3/uL (1.80-7.70); Neutrophils % (A) 53.7 %; Platelet Count 277 X 10*3/uL (140-440); RBC 4.49 X 10*6/uL (4.10-5.20); RDW 14.1 % (11.5-14.5); WBC 5.62 X 10*3/uL (4.50-10.00)
[2024-12-08 10:37] LABS: ALT 23 U/L (8-44); AST 21 U/L (13-35); Albumin 4.5 g/dL (3.8-4.9); Alkaline Phosphatase 51 U/L (41-126); Blood Urea Nitrogen 14.4 mg/dL (9.0-27.0); Calcium 9.4 mg/dL (8.7-10.3); Carbon Dioxide 23.5 mmol/L (21.6-31.8); Chloride 104 mmol/L (96-109); Chol/HDL Ratio 3.47 Ratio; Globulin 2.5 g/dL (1.6-3.3); Glucose 118 mg/dL (70-110); LDL Cholesterol,Calculated 61.6 mg/dL (0.0-131.0); Potassium 4.2 mmol/L (3.5-5.5); Sodium 140 mmol/L (135-145); T4, Free (Free Thyroxine) 1.25 ng/dL (0.80-1.80); Total Bilirubin 0.6 mg/dL (0.3-1.2); Uric Acid 5.7 mg/dL (2.9-7.7)
== END | disposition home or self-care (01) ==
LOC: LABWHC1 07:18
PROVIDERS: ATTEND Internal Medicine Geriatric Medicine
DX: E21.3 Hyperparathyroidism, unspecified (principal); E78.2 Mixed hyperlipidemia; E11.9 Type 2 diabetes mellitus without complications; E07.9 Disorder of thyroid, unspecified; M10.9 Gout, unspecified
CPT/HCPCS: 36415; 80053; 80061; 83036; 84439; 84443; 84550; 85025